=== PATIENT | male | born 1950 | race Caucasian/White ===

== ENCOUNTER 2021-06-25 21:04 | Emergency (ER) | payer MEDICARE, SELFPAY ==
[2021-06-25 21:03] VITALS: BP 123/77; PULSE 90; RESP 18; TEMP 36.8; O2SAT 97
--- NOTE | 2021-06-25 21:12 | NUR.NOTE ---
Difficult to discern information from patient. Refuses to change into gown. 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 Ambulates to restroom with slow but steady gait; offers to provide urine specimen.Nursing Note:
--- NOTE | 2021-06-25 21:12 | W.ED.GENAD ---
Discharge Plan Disposition Patient Disposition: HOME Condition: Stable Discharge Details Chief Complaint: Orthopedic Clinical Impression: Foot pain, bilateral Primary Care Provider: None,None ED Provider: Everardo Rebollar Home Meds and New Rx's Prescriptions: No Action No Known Home Meds RF: 0 Discharge Instructions Additional Instructions: Patient verbally discharged, no discharge packet given Discharge Data Discharge Date/Time-TO BE ENTERED AT DEPARTURE: 06/25/21 22:16 Medical Decision Making 71-year-old male, currently homeless, past medical history of diabetes, chronic pedal edema, who openly admits that he does not have a medical emergency this evening and simply wants to find a place where he can lay down and rest his feet. He was kicked out of the [facility] this evening because he states that the rules are too strict. He states that he could contact some friends from [employer] tomorrow but does not want to bother them tonight. He states that he has about $60 and if we give him an additional 25 he could likely take a cab to [place]. He wonders if any staff individually in the ER would provide him with this money or perhaps a hospital as a whole. He also would like us to contact the [facility] program. I explained to him that we could provide him with a phone and a warm exam room for an hour or so while he made arrangements but he could not stay here the night as we do not have the capacity. He does not want to use the phone himself, she would like us to make the phone calls and to make the arrangements for him. Nursing staff did in fact call the [employer] program and I had our community support specialist contact both local and state police to see if they would be able to provide him with a courtesy ride. Unfortunately the [employer] program did not call us back and lawn for [employer] was not able to provide a ride. We even contacted the [facility] to see if they would house him again this evening until he can make other arrangements tomorrow but they declined as they said his behavior was unsatisfactory and they would not take him back. We contacted local [employer] companies but they are not running this late at night. Unfortunately we did not have any case management to get involved as it was after hours. I contacted our nursing fitting room supervisor she discussed options and she personally spoke with the patient as well. At this point the patient became irate, yelling at staff, telling me that I have not been enough for him and that he hopes that I burn in hell. At this point patient was verbally discharged with his belongings. Patient was able to ambulate without any difficulty whatsoever. HPI General Mode of arrival: EMS. Date/Time Provider Initiated Documentation: 06/25/21 21:07. Limitations to Documentation: no limitations. Information obtained by: patient and EMS. HPI Narrative: This is a 71-year-old gentleman, past medical history of diabetes, bilateral lower leg edema chronic in nature, presenting to the ER today stating that he is simply traveling through the area, got kicked out of his housing today because he did not like the rules and he did not feel as though they treated him fairly, and is now homeless, because of this he has been walking all day and he feels as though his feet bilaterally are more swollen than baseline and causing him discomfort. Patient is specifically requesting that we find him somewhere to lie down so he can rest his feet. Patient denies recent illness, trauma, headache, fever, chest pain, shortness breath abdominal pain, nausea, vomiting, calf pain, numbness, tingling, weakness. Patient does smoke cigarettes, reports occasional alcohol use, denies drug use. Patient states that he does not want to call any friends that live with in an hour radius because he feels as though it is too late would not be fair to make them drive this far. Patient states that tomorrow morning he can likely contact someone from [employer] to make additional arrangements. He is otherwise feels like he cannot connect any other resources until Sunday and essentially has nowhere to stay tonight or tomorrow. Denies history of DVT or PE. Denies history of CHF. Related Data Home Medications Medication Instructions Recorded Confirmed Unknown [No Known Home Meds] 06/25/21 06/25/21 Allergies Allergy/AdvReac Type Severity Reaction Status Date / Time cephalexin [From Keflex] Allergy Nausea Unverified 06/25/21 21:06 General Stated Complaint: Orthopedic SAURAV: 3 Review of Systems Constitutional Constitutional: Denies fever(s) and Denies weakness Cardiovascular Cardiovascular: Denies chest pain and Denies dyspnea Respiratory Respiratory: Denies cough and Denies dyspnea Gastrointestinal Gastrointestinal: Denies abdominal pain, Denies nausea and Denies vomiting Musculoskeletal Musculoskeletal: Denies numbness and Denies tingling Integumentary/Breasts Skin/Breast: Denies erythema and Denies rash Neurologic Neurologic: Denies numbness, Denies tingling and Denies weakness [facility] Social History Smoking/Tobacco Use Status: Current every day Smoking risk assessment performed?: Yes Alcohol Intake: current Alcohol Intake frequency: a few times a week Substance use type: does not use Do you feel safe at home: Yes Do you feel safe in your relationship?: Yes Exam Const General: comfortable, no acute distress and other (Uncooperative, irritable, argumentative) Orientation: alert, awake and oriented x3 HENMT Head: normal to inspection, normocephalic and atraumatic Face and sinus: normal facial exam Mouth: moist mucous membranes Eyes General: appearance normal, both eyes and all related structures Conjunctivae: conjunctivae normal Neck Neck: normal visual inspection, full ROM, trachea midline and supple Resp Effort & Inspection: normal respiratory effort and able to speak in complete sentences Auscultation: clear to auscultation bilaterally Cardio Rate: regular rate Rhythm: regular rhythm GI Palpation: soft and nontender Skin General skin exam: no rashes or lesions noted Neuro General: patient alert, patient awake, patient oriented x3, moves all extremities and no focal motor deficits Cognition: normal cognition Speech: speech normal Gait: normal gait and other (Slow but steady gait) Sensory Exam: no sensory deficits noted Extrem General: full ROM, capillary refill normal, no calf tenderness and pedal edema bilaterally non-pitting and 2+ Right lower extremity: full ROM, normal capillary refill and knee Details: normal to inspection and normal ROM; no tenderness and no swelling Left lower extremity: full ROM, normal capillary refill and knee Details: normal to inspection and normal ROM; no tenderness and no swelling Other: Bilateral lower extremities with 2+ nonpitting edema without erythema, warmth, tenderness. Negative Homans' sign bilaterally. Normal capillary refill and pedal pulses bilaterally Psych Appearance: grossly normal Mental Status: mental status grossly normal Course Vital Signs Vital signs: Vital Signs Temperature 36.8 C 06/25/21 21:03 Pulse 90 06/25/21 21:03 Respiratory Rate 18 06/25/21 21:03 Blood Pressure 123/77 06/25/21 21:03 Pulse Oximetry 97 06/25/21 21:03 Temperature 36.8 C 06/25/21 21:03 Temperature Source Oral 06/25/21 21:03 Pulse 90 06/25/21 21:03 Respiratory Rate 18 06/25/21 21:03 Respiratory Effort Non-Labored 06/25/21 21:07 Blood Pressure 123/77 06/25/21 21:03 Blood Pressure Position Sitting 06/25/21 21:03 Pulse Oximetry 97 06/25/21 21:03 Oxygen Delivery Method Room Air 06/25/21 21:03 Oxygen Flow Rate 0 06/25/21 21:03 Pain Level 10 06/25/21 21:03
--- NOTE | 2021-06-25 21:38 | NUR.NOTE ---
Call to [employer] to attempt to find patient housingNursing Note:
--- NOTE | 2021-06-25 21:43 | NUR.NOTE ---
Three calls to [employer], no answer, message left.Nursing Note:
--- NOTE | 2021-06-25 21:49 | NUR.NOTE ---
Call to [facility], patient not allowed to stay there.Nursing Note:
--- NOTE | 2021-06-25 22:45 | NUR.NOTE ---
[address] returns call. They report the state [facility] is full and there is no housing available; especially in this county. Reports patient will be placed on probation/period of ineligibility until he contacts [employer] at , open M-F [phone]. Patient ambulated from hospital property with steady gait.Nursing Note:
== END 2021-06-25 22:16 | disposition home or self-care (01) ==
PROVIDERS: Emergency Provider Physician Assistant
DX: M79.672 Pain in left foot (principal); M79.671 Pain in right foot
CPT/HCPCS: 99283; 99281

== ENCOUNTER 2023-02-15 19:20 | Emergency (ER) | payer MEDICARE, OTHER, SELFPAY ==
--- NOTE | 2023-02-15 19:15 | RT.EKG_ITS ---
APPROVED REPORT Exam: Resting ECG Reason for Exam: dizzy Patient Location: E HR:76 bpm ECG Measurements Heart Rate 76 AXIS MT 191 P 41 QRSd 152 QRS 57 QT 375 T 37 QTc 422 Conclusion Sinus rhythm...normal P axis, V-rate 60- 99 Right bundle branch block...QRSd>120, terminal axis(90,270)
[2023-02-15 19:22] VITALS: BP 167/69; PULSE 72; RESP 17; TEMP 36.9; O2SAT 100
[2023-02-15 19:34] VITALS: RESP 18
--- NOTE | 2023-02-15 19:44 | NUR.NOTE ---
Nursing Note: Pt being very argumentative with staff. Pt refusing to undress to allow for evaluation. Pt refusing to answer any questions for nursing staff or provider. Pt refusing care and removing monitoring devices.
--- NOTE | 2023-02-15 19:47 | ED.GENADUL_ITS ---
Discharge Plan Disposition Patient Disposition: Eloped Discharge Details Clinical Impression: Peripheral edema Primary Care Provider: None,None ED Provider: Katina Potts Home Meds and New Rx's Prescriptions: No Action No Known Home Meds Medical Decision Making 73-year-old male who presents via EMS, challenging patient to assess as he is unwilling to speak with us unless he is seated in a chair rather than the bed, of note he is also refusing to place on a gown to be evaluated Patient made aware that we cannot fully assess him unless he is willing to disclose the reasons for which she has presented to this hospital and to have a full physical exam He was made aware that if he does not wish to be evaluated he may leave Patient became agitated and feels as though we are incompetent and is choosing to leave the emergency department prior to complete assessment, Attempt was made to call [facility] to transfer patient back to his residence for the evening, however unfortunately this is unavailable, he left the waiting room on his own accord and has eloped prior to complete exam and evaluation, competent to make this decision at time of my assessment HPI General Date/Time Provider Initiated Documentation: 02/15/23 19:22 . HPI Narrative: This 73-year-old male with reported past medical history of renal failure, diabetes, and peripheral edema presents via EMS for reports of lack of housing and increase in his peripheral edema. He presents from [facility] where a bystander called secondary to patient's leg swelling and reports of lightheadedness. On arrival, patient is complaining of abdominal discomfort and leg swelling. He denies chest pain, shortness of breath, dizziness, headache, falls, injuries, illicit drug use. He states that he does not take any medications and does not have a doctor. Related Data Home Medications Medication Instructions Recorded Confirmed Unknown [No Known Home Meds] 06/25/21 06/25/21 Allergies Allergy/AdvReac Type Severity Reaction Status Date / Time cephalexin [From Keflex] Allergy Nausea Unverified 06/25/21 21:06 General Stated Complaint: GenMedical SAURAV: 3 PFSH All Active Problems (Updated 02/15/23 @ 21:52 by SHANNON Hawkins) Foot pain, bilateral (Acute) Peripheral edema (Acute) Social History Smoking/Tobacco Use Status: Current every day Tobacco Type: cigarettes Smoking risk assessment performed?: Yes Alcohol Intake: former Substance use type: does not use Do you feel safe at home: Yes Do you feel safe in your relationship?: Yes Additional Social history: pt reports he is homeless Exam Narrative Exam Narrative: Full exam was attempted, however patient is refusing to take off his socks or lean forward on assessment, cardiac rate rhythm regular, pupils equal round reactive to light and accommodation, mild diffuse abdominal tenderness with distention, alert and oriented x4, significant edema, lymphedema to left lower extremity, 4+, 3+ edema to right lower extremity, distal pulses intact through socks Course Vital Signs Vital signs: Vital Signs Temperature 36.9 C 02/15/23 19:22 Pulse 72 02/15/23 19:22 Respiratory Rate 17 02/15/23 19:22 Blood Pressure 167/69 H 02/15/23 19:22 Pulse Oximetry 100 02/15/23 19:22 Temperature 36.9 C 02/15/23 19:22 Temperature Source Temporal Artery Scan 02/15/23 19:22 Pulse 72 02/15/23 19:22 Respiratory Rate 18 02/15/23 19:34 Respiratory Effort Normal 02/15/23 19:34 Respiratory Depth Normal 02/15/23 19:34 Respiratory Pattern Normal 02/15/23 19:34 Blood Pressure 167/69 H 02/15/23 19:22 Blood Pressure Position Sitting 02/15/23 19:22 Pulse Oximetry 100 02/15/23 19:22 Oxygen Delivery Method Room Air 02/15/23 19:22 Oxygen Flow Rate 0 02/15/23 19:22
--- NOTE | 2023-02-15 19:56 | NUR.NOTE ---
Nursing Note: Patient being argumentative with staff. Patient verbally degrading to nursing staff. Patient removed all monitoring and left ER ambulatory.
--- OUTSIDE RECORDS SUMMARY | 2023-02-15 21:22 | XMS_ITS | Continuity of Care Document ---
Author Name [facility] Address [address] [place] [address] Organization [facility] Address [address] [place] [address] Support Name Relationship Address Phone No Primary Care, Physician Primary Care Provider Unknown Unavailable Sylwia Wisdom Emergency Provider [facility] Department [address], Dimitri Amezcua [place], [place] [id number] Allergies, Adverse Reactions, Alerts No known allergies. Medications No medication information available. Problem List Active Problems Medical Problem Onset Date Status Acute UTI Active Chronic foot pain Active Procedures Procedure Date Status Urine Culture February 15, 2021 active Relevant Diagnostic Tests and/or Laboratory Data Laboratory Results Test Date/Time Result Interp. Ref. Range Result Co mment Urine Color February 15, 2021 11:08am Pale yellow Urine Clarity February 15, 2021 11:08am Turbid High Urine Specific [place] February 15, 2021 11:08am 1.029 1.005-1.035 Urine Glucose (UA) February 15, 2021 11:08am 250 mg/dL High Urine Bilirubin February 15, 2021 11:08am Negative mg/dL Urine Ketones February 15, 2021 11:08am Negative mg/dL Urine Occult Blood February 15, 2021 11:08am 150 /uL High Urine pH February 15, 2021 11:08am 6.0 4.8-7.4 Urine Protein February 15, 2021 11:08am 30 mg/dL High Urine Urobilinogen February 15, 2021 11:08am Normal mg/dL Urine Nitrite February 15, 2021 11:08am Negative Urine Leukocyte Esterase February 15, 2021 11:08am 500 /uL High Urine WBC February 15, 2021 11:08am Loaded /hpf High Urine RBC February 15, 2021 11:08am 11-20 /hpf High Urine Squamous Epithelial Cells February 15, 2021 11:08am 0-2 /hpf Urine Bacteria February 15, 2021 11:08am 2+ /hpf High Advance Directives Advance Directive Response Recorded Date/ Time Date Patient Queried 02/15/21 February 15 11:07am Does the patient have a Healthcare Proxy? No February 15, 2021 11:07am Healthcare Proxy Status Informed Patient February 15, 2021 11:07am Chief Complaint and Reason for Visit Encounter Admit Date Chief Complaint Reason for V isit Departed Emergency February 15, 2021 10:12am Lt leg pain Hospital Discharge Instructions Additional Discharge Instructions You we re evaluated in the emergency room for left foot pain. Your foot does not appear to be infected however you do have a urinary tract infection. Please take the antibiotics that were prescribed at the other hospital. Please follow-up with your regular doctor. Return for any significant worsening for pain or other concerns. No Instructions/Education Pr ovided Encounters Encounter Facility Location Admit/Visit Date Discharge/Departure Date Attending Provider Departed Emergency [facility] [place] [facility] February 15, 2021 10:12am February 15, 2021 12:55pm Functional Status Query Response Date Recorded Comment Patient Orientation Oriented x3 February 15, 2021 10:45am Immunizations No known immunizations. Plan of Care No Known Plan of Care Information Social History Query Response Date Recorded Comment Does the patient use drugs? No February 15, 2021 10:45am Is pt a current\former smoke r or user of tobacco products? Yes, current February 15, 2021 10:45am Query Response Start Date Stop Date Is pt a current\former smoke r or user of tobacco products? Yes, current Vital Signs Vital Reading Result Reference Range Collection Date/Time Height 5 ft 7 in February 15, 2021 10 :45am Weight 86.2 kg February 15, 2021 10 :45am Temperature 98.3 F 97.5 F-99.3 F February 15, 2021 1 0:45am Pulse 80 BPM 60-90 February 15, 2021 10 :45am Respiration 18 RPM 12-20 February 15, 2021 10 :45am Pulse Oximetry 99 % 95-100 February 15, 2021 10:45am Blood Pressure Systolic 154 100-160 February 15, 2021 10:45am Blood Pressure Diastolic 80 60-90 February 15, 2021 10:45am
--- OUTSIDE RECORDS SUMMARY | 2023-02-15 21:22 | XMS_ITS | CCD ---
Author Name Unknown Address [address] [place] [id number] Organization Unknown Address [address] [place] [id number] Care Team Providers Care Golf Coach Name Role Phone FELICIA SPARKS Attending Physician [id number] [phone] ALEC HARMON Er Physician 6 [phone] ERNESTO Mena Registered Nurse [phone] CARY Mena Registered Nurse [phone] Vital Signs Vital Sign Value Unit Date/Time Recent/Initial ? BMI (Body Mass Index) 28.19 kg/m^2 02/12/2023 18: 24 Initial VS Weight Measured 180 lbs 02/12/2023 18:24 Ini tial VS Height 67 in 02/12/2023 18:24 Initial VS BSA (Body Surface Area) 1.96 m^2 02/12/2023 1 8:24 Initial VS BP Systolic 155 mmHg 02/12/2023 18:24 Initial VS BP Diastolic 75 mmHg 02/12/2023 18:24 Initia l VS Respiratory Rate 20 bpm 02/12/2023 18:24 In itial VS Heart Rate 92 bpm 02/12/2023 18:24 Initial VS O2 % BldC Oximetry 100 % 02/12/2023 18:24 Initial VS Body Temperature 35.4 degrees 02/12/2023 18:24 In itial VS Allergies Allergy Code Allergy Type Reaction Status KEFLEX [id number] Drug allergy Active Procedures Unknown or Not Available. History of Immunizations Unknown or Not Available. Problems Problem Code Start Date Resolved Date Status NIDDM 58674117 Active Chronic kidney disease [id number] Ac tive Homeless [id number] 02/12/2023 Active Results Unknown or Not Available. Active Medications Unknown or Not Available. Medications Administered During Visit Unknown or Not Available. Encounters Encounter Diagnosis Diagnosis Code Start Date Localized edema [id number] 02/12/2023 Social History Smoking Status Code Start Date End Date Current every day smoker [id number] Patient Decision Aids Unknown or Not Available. Discharge Instructions You were admitted to [facility] on 02/12/2023 18:01 with a principal diagnosis of Localized edema You were discharged from [facility] on 02/12/2023 22:18 Should you have any questions prior to discharge, please contact a member of your healthcare team. If you have left the hospital and have any questions, please contact your primary care physician. Chief Complaint and Reason For Visit Chief Complaint Date of Onset BOTH FEET IN PAIN SWOLLEN Function Status Unknown or Not Available. Plan of Care Unknown or Not Available. Referral/Transition of Care Unknown or Not Available.
--- OUTSIDE RECORDS SUMMARY | 2023-02-15 21:22 | XMS_ITS | Continuity of Care Document ---
Author Name Unknown Organization [facility] Address [address] [place] [id number] Encounter CCA Date(s): 11/14/19 - 11/14/[address] [address]- Encounter Diagnosis Leg swelling(Discharge Diagnosis) - 11/14/19 Urinary tract infection(Discharge Diagnosis) - 11/14/19 Discharge Disposition: Discharged to Home Attending Physician: MD Godinez Jeja Admitting Physician: MD Godinez Jeja Allergies, Adverse Reactions, Alerts Substance Reaction Severity Status cephalexin 1 Unknown Active 1 Legacy System: CCA Onset Date: <blank> Substance Legacy/Cerner: cephalexin / cephalexin (Legacy value) Category: Drug Severity Legacy/Cerner: <blank> / Unknown Reaction(s): <blank> Comments: <blank> Assessment and Plan Diagnostic Tests Pending * Blood Culture 11/14/19 * Blood Culture 11/14/19 * Urine Culture 11/14/19 Medications levoFLOXacin 750 mg oral tablet 750 mg = 1 tab, Oral, every 24 hr, X 5 days, # 5 tab, 0 Refill(s), 11/19/19 22:07:00 EST, UTI, uncomplicated Start Date: 11/14/19 Stop Date: 11/19/19 Status: Ordered Problem List Condition Effective Dates Status Health Status Inform ant CHF - Congestive heart failure(Confirmed) 1 Active 1Conversion Values Problem:CHF - Congestive heart failure Code :555336882 Confirmation :Confirmed Status :Active Onset: No Value Matched on:[employer] Results Laboratory List Name Date CBC with Automated Differential (CBC w/ Auto Diff) 11/14/19 Comprehensive Metabolic Panel (CMP) 11/14 D-Dimer 11/14/19 Lactic Acid (Venous) 11/14/19 PT (PT (with INR)) 11/14/19 PTT 11/14/19 Urinalysis Microscopic 11/14/19 Urinalysis with Microscopic (UA with Milo roscopic) 11/14/19 Most recent to oldest [Reference Range]: 1 2 3 WBC [4.50-13.00 x10^3/mcL] 4.18 x10^3/mc L *LOW* (11/14/19 6:21 PM) RBC [4.50-5.90 x10^6/mcL] 4.00 x10^6/mcL *LOW* (11/14/19 6:21 PM) Neutro Auto [36.0-66.0 %] 61.3 % (11/14/19 6:21 PM) Lymph Auto [20.0-55.0 %] 22.7 % (11/14/19 6: PM) Piatt Auto [0.0-10.0 %] 9.8 % (11/14/19 6:21 PM) Basophil Auto [0.0-2.0 %] 1.2 % (11/14/19 6:21 PM) Prothrombin Time [12.0-14.2 seconds] 12.7 seconds (11/14/19 6:21 PM) INR [0.0-1.5] 0.9 (11/14/19 6:21 PM) BUN [6.0-20.0 mg/dL] 26.0 mg/dL *HI* (11/14/19 6:21 PM) UA Color Yellow (11/14/19 6:21 PM) UA WBC >100 *ABN* (11/14/19 6:21 PM) Glucose Level [70-95] 189 *HI* (11/14/19 6:21 PM) Potassium Level [3.5-5.1 mmol/L] 4.2 mmol/L (11/14/19 6:21 PM) Baso Absolute [0.0-0.1 x10^3/mcL] 0.0 x10^3/mcL (11/14/19 6:21 PM) MCV [80.0-100.0 fL] 92.5 fL (11/14/19 6:21 PM) UA Urobilinogen [Normal] Normal (11/14/19 6:21 PM) UA Bili [Negative] Negative (11/14/19 6: PM) UA Ketones [Negative] Negative (11/14/19 6: PM) AST [10-50 IntlUnit/L] 16 IntlUnit/L (11/14/19 6: PM) ALT [10-44 IntlUnit/L] 18 IntlUnit/L (11/14/19 6: PM) MCHC [31.0-37.0 g/dL] 32.4 g/dL (11/14/19: PM) Sodium Level [136-145 mmol/L] 137 mmol/L (11/14/19: PM) UA RBC 5-9 *NA* (11/14/19: PM) UA Leuk Est [Negative] 3+ *ABN* (11/14/19 PM) Lymph Absolute [0.8-5.8 x10^3/mcL] 1.0 x10^3/mcL (11/14/19: PM) UA Nitrite [Negative] Negative (11/14/19 PM) UA Glucose [Normal] Normal (11/14/19 PM) Hct [41.0-53.0 %] 37.0 % *LOW* (11/14/19: PM) UA Bacteria Large *ABN* (11/14/19 PM) Partial Thromboplastin Time [24.2-35.5 seconds] 29.7 seconds (11/14/19: PM) Calcium Level [8.8-10.2 mg/dL] 8.8 mg/dL (11/14/19: PM) Piatt Absolute [0.0-1.1 x10^3/mcL] 0.4 x10^3/mcL (11/14/19: PM) Albumin Level [3.5-5.0 g/dL] 3.8 g/dL (11/14/19: PM) Protein Total [6.4-8.3 g/dL] 7.5 g/dL (11/14/19: PM) UA Protein [Negative] Trace *ABN* (11/14/19 PM) MCH [26.0-34.0 pg] 30.0 pg (11/14/19: PM) Neutro Absolute [1.6-8.5 x10^3/mcL] 2.6 x10^3/mcL (11/14/19 6:21 PM) Bilirubin Total [0.00-1.00 mg/dL] 0.50 mg/dL (11/14/19: PM) Hgb [13.5-17.0 g/dL] 12.0 g/dL *LOW* (11/14/19: PM) Alk Phos [40-129 IntlUnit/L] 75 IntlUnit /L (11/14/19 6:21 PM) UA Blood [Negative] 1+ *ABN* (11/14/19: PM) MPV [7.4-10.4 fL] 10.2 fL (11/14/19: PM) UA Mucous Trace *NA* (11/14/19 PM) UA Spec Grav [1.005] 1.012 (11/14/19: PM) Platelets [150-450 x10^3/mcL] 167 x10^3/mcL (11/14/19: PM) CO2 [23-29 mmol/L] 25 mmol/L (11/14/19 6:21 PM) Eos Absolute [0.0-1.0 x10^3/mcL] 0.2 x10^3/mcL (11/14/19: PM) Lactic Acid, Plasma (Venous) [0.5-1.9 mmol/L] 1.1 mmol/L (11/14/19: PM) UA Squam Epithelial 0-4 (11/14/19: PM) RDW [11.5-14.0 %] 13.4 % (11/14/19: PM) UA pH 5.0 (11/14/19 6:21 PM) eGFR Non-AA 41 *NA* (11/14/19: PM) eGFR AA 49 *NA* (11/14/19: PM) UA Appear [Clear] Turbid *ABN* (11/14/19: PM) Chloride Level [98-107 mmol/L] 105 mmol/L (11/14/19 6:21 PM) A/G Ratio [1-2] 1 (11/14/19 6:21 PM) BUN/Creat Ratio 15 *NA* (11/14/19 6:21 PM) Globulin [2.4-3.5 g/dL] 3.7 g/dL *HI* (11/14/19 6:21 PM) Osmolality Calc [261-280 mOsm/kg] 292 mOsm/kg *HI* (11/14/19 6:21 PM) Creatinine Level [0.9-1.2 mg/dL] 1.7 mg/dL *HI* (11/14/19 6:21 PM) Anion Gap [7-16 mmol/L] 11 mmol/L (11/14/19 6:21 PM) D Dimer, (Quant.) [0.00-0.50 mcg/mL] 0.52 mcg/mL *HI* (11/14/19 6:21 PM) Eos, Auto [0.0-6.0 %] 4.8 % (11/14/19 6:21 PM) Systolic Blood Pressure [90-140 mmHg] 148 mmHg *HI* (11/14/19:20 PM) 162 mmHg *HI* (11/14/19 7:15 PM) 159 mmHg *HI* (11/14/19 5:00 PM) Diastolic Blood Pressure [60-90 mmHg] 72 mmHg (11/14/19 10:20 PM) 80 mmHg (11/14/19 7:15 PM) 74 mmHg (11/14/19 5:00 PM) Respiratory Rate [14-20 br/min] 20 br/min (11/14/19 10:20 PM) 18 br/min (11/14/19 7:15 PM) 21 br/min *HI* (11/14/19 5:00 PM) Vital Signs Most recent to oldest [Reference Range]: 1 2 3 Temperature Temporal Artery [36-38 Deg C] 37.0 Deg C (11/14/19 5:00 PM) Peripheral Pulse Rate [60-100] 82 (11/14/19 10:20 PM) 74 (11/14/19 7:15 PM) 85 (11/14/19 5:00 PM) Respiratory Rate [14-20 br/min] 20 br/min (11/14/19 10:20 PM) 18 br/min (2/14/20 7:15 PM) 21 br/min *HI* (11/14/19 5:00 PM) Blood Pressure [90-140/60-90 mmHg] 148/72mmHg *HI* (11/14/19 10:20 PM) 162/80mmHg *HI* (11/14/19 7:15 PM) 159/74mmHg *HI* (11/14/19 5:00 PM) Social History Social History Type Response Smoking Status 10 or more cigarette s (1/2 pack or more)/day in last 30 days; Type: Cigarettes entered on: 11/14/19 Sex Male Hospital Discharge Instructions Patient Education 11/14/2019 21:05:16 Urinary Tract Infection, Adult Urinary Tract Infection, Adult A urinary tract infection (UTI) is an infection of any part of the urinary tract, which includes the kidneys, ureters, bladder, and urethra. These organs make, store, and get rid of urine in the body. UTI can be a bladder infection (cystitis) or kidney infection (pyelonephritis). What are the causes? This infection may be caused by fungi, viruses, or bacteria. Bacteria are the most common cause of UTIs. This condition can also be caused by repeated incomplete emptying of the bladder during urination. What increases the risk? This condition is more likely to develop if: ??? You ignore your need to urinate or hold urine for long periods of time. ??? You do not empty your bladder completely during urination. ??? You wipe back to front after urinating or having a bowel movement, if you are female. ??? You are uncircumcised, if you are male. ??? You are constipated. ??? You have a urinary catheter that stays in place (indwelling). ??? You have a weak defense (immune) system. ??? You have a medical condition that affects your bowels, kidneys, or bladder. ??? You have diabetes. ??? You take antibiotic medicines frequently or for long periods of time, and the antibiotics no longer work well against certain types of infections (antibiotic resistance). ??? You take medicines that irritate your urinary tract. ??? You are exposed to chemicals that irritate your urinary tract. ??? You are female. What are the signs or symptoms? Symptoms of this condition include: ??? Fever. ??? Frequent urination or passing small amounts of urine frequently. ??? Needing to urinate urgently. ??? Pain or burning with urination. ??? Urine that smells bad or unusual. ??? Cloudy urine. ??? Pain in the lower abdomen or back. ??? Trouble urinating. ??? Blood in the urine. ??? Vomiting or being less hungry than normal. ??? Diarrhea or abdominal pain. ??? Vaginal discharge, if you are female. How is this diagnosed? This condition is diagnosed with a medical history and physical exam. You will also need to providea urine sample to test your urine. Other tests may be done, including: ??? Blood tests. ??? Sexually transmitted disease (STD) testing. If you have had more than one UTI, a cystoscopy or imaging studies may be done to determine the cause of the infections. How is this treated? Treatment for this condition often includes a combination of two or more of the following: ??? Antibiotic medicine. ??? Other medicines to treat less common causes of UTI. ??? Waxi-yea-tdzbgol medicines to treat pain. ??? Drinking enough water to stay hydrated. Follow these instructions at home: ??? Take utru-yxx-srofidv and prescription medicines only as told by your health care provider. ??? If you were prescribed an antibiotic, take it as told by your health care provider. Do not stoptaking the antibiotic even if you start to feel better. ??? Avoid alcohol, caffeine, tea, and carbonated beverages. They can irritate your bladder. ??? Drink enough fluid to keep your urine clear or pale yellow. ??? Keep all follow-up visits as told by your health care provider. This is important. ??? Make sure to: ??? Empty your bladder often and completely. Do not hold urine for long periods of time. ??? Empty your bladder before and after sex. ??? Wipe from front to back after a bowel movement if you are female. Use each tissue one time whenyou wipe. Contact a health care provider if: ??? You have back pain. ??? You have a fever. ??? You feel nauseous or vomit. ??? Your symptoms do not get better after 3 days. ??? Your symptoms go away and then return. Get help right away if: ??? You have severe back pain or lower abdominal pain. ??? You are vomiting and cannot keep down any medicines or water. This information is not intended to replace advice given to you by your health care provider. Make sure you discuss any questions you have with your health care provider. Document Released: 06/27/2006 Document Revised: 02/28/2017 Document Reviewed: 08/07/2016 [employer] Interactive Patient Education ?? 2017 [employer] Follow Up Care 11/14/2019 16:53:48 With:Return to Emergency Department Address: When:12 Hours Comments:Please return??tomorrow??to ER at 7:00 a.m. for an??ultrasound of your leg. With:Follow up with primary care provider Address:Unknown When:2 to 4 days
--- OUTSIDE RECORDS SUMMARY | 2023-02-15 21:22 | XMS_ITS | Continuity of Care Document ---
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 Name Role Phone UNKNOWN, DOCTOR Primary Care Physician Unavailab le Encounter [facility] [id number] Date(s): 08/09/21 - 08/10/21 [facility] [address] [place] [address]- [facility] Encounter Diagnosis Acute UTI(Discharge Diagnosis) - 08/10/21 Discharge Disposition: Home/Routine Attending Physician: ARMINDA PRETTY MD Referring Physician: VIJAY RUDOLPH MD Reason for Visit AMB LEG PAIN Allergies, Adverse Reactions, Alerts Substance Reaction Severity Status Keflex Active Toradol Nausea Active Medications levoFLOXacin (Levaquin 500 m g oral tablet) Status: Ordered Start Date: 08/10/21 Stop Date: 08/15/21 1 tab(s) By Mouth every 24 hours for 5 Days. Refills: 0. Ordering provider: NISHA BEAVER metFORMIN (Glucophage 500 mg oral tablet) Status: Ordered Start Date: 04/13/15 1 tab(s) By Mouth 2 TIMES A DAY. Refills: 0. Ordering provider: ROBERT BENAVIDES metFORMIN (metformin) Status: Ordered Start Date: 04/13/15 By Mouth. Problem List Condition Effective Dates Status Health Status Inform ant Alcohol abuse(Confirmed) Active Asthma(Confirmed) Active Congestive heart failure(Confirmed) Active Diabetes mellitus, type II(Confirmed) Active Results Orders for Microbiology Reports Name Date Urine Culture (C&S) (Urine Culture) 08/09 Microbiology Reports TEST:Urine Culture COLLECTED DATE/TIME:08/09/21 9:13 PM Urine CultureSpecimen Description: Urine Special Requests: None Reflexed from [id number] Culture: Greater than 100,000 cfu/ml Acinetobacter radioresistens Culture: Greater than 100,000 cfu/ml Enterococcus faecalis Culture: 50,000-100,000 cfu/mL Normal Josee Vital Signs 08/09/21 Blood Pressure 165/107mmHg Dosing Weight (kg) 80.75 kg 1 Pulse 81 BPM Temperature Metric 36.8 DegC Respiratory Rate 16 br/min 1Result Comment: Dosing weight (kg) was created by [employer] Expert using the Admission weight (kg). Social History Social History Type Response Smoking Status Yes, smoke everyday Sex Male Hospital Discharge Instructions Patient Education 08/10/2021 00:07:09 UTI (Urinary Tract Infection): Male Urinary Tract Infections (UTI) in Men: Care Instructions Overview A urinary tract infection, or UTI, is a term for an infection anywhere between the kidneys and the urethra. (The urethra is the tube that carries urine from the bladder to outside the body.) Most UTIs are bladder infections. They often cause pain or burning when you urinate. UTIs are caused by bacteria. This means they can be cured with antibiotics. Be sure to complete your treatment so that the infection does not get worse. Follow-up care is a ramírez part of your treatment and safety. Be sure to make and go to all appointments, and call your doctor if you are having problems. It's also a good idea to know your test resultsand keep a list of the medicines you take. How can you care for yourself at home? Take your antibiotics as prescribed. Do not stop taking them just because you feel better. You need to take the full course of antibiotics. ??? Take your medicines exactly as prescribed. Your doctor may have prescribed a medicine, such as phenazopyridine (Pyridium), to help relieve pain when you urinate. This turns your urine orange. Youmay stop taking it when your symptoms get better. But be sure to take all of your antibiotics, which treat the infection. ??? Drink extra water for the next day or two. This will help make the urine less concentrated and help wash out the bacteria causing the infection. (If you have kidney, heart, or liver disease and have to limit your fluids, talk with your doctor before you increase your fluid intake.) ??? Avoid drinks that are carbonated or have caffeine. They can irritate the bladder. ??? Urinate often. Try to empty your bladder each time. ??? To relieve pain, take a hot bath or lay a heating pad (set on low) over your lower belly or genital area. Never go to sleep with a heating pad in place. To help prevent UTIs ??? Drink plenty of fluids. If you have kidney, heart, or liver disease and have to limit fluids, talk with your doctor before you increase the amount of fluids you drink. ??? Urinate when you have the urge. Do not hold your urine for a long time. Urinate before you go to sleep. ??? Keep your penis clean. Catheter care If you have a drainage tube (catheter) in place, the following steps will help you care for it. ??? Always wash your hands before and after touching your catheter. ??? Check the area around the urethra for inflammation or signs of infection. Signs of infection include irritated, swollen, red, or tender skin, or pus around the catheter. ??? Clean the area around the catheter with soap and water two times a day. Dry with a clean towel afterward. ??? Do not apply powder or lotion to the skin around the catheter. To empty the urine collection bag ??? Wash your hands with soap and water. ??? Without touching the drain spout, remove the spout from its sleeve at the bottom of the collection bag. Open the valve on the spout. ??? Let the urine flow out of the bag and into the toilet or a container. Do not let the tubing or drain spout touch anything. ??? After you empty the bag, clean the end of the drain spout with tissue and water. Close the valve and put the drain spout back into its sleeve at the bottom of the collection bag. ??? Wash your hands with soap and water. When should you call for help? Call your doctor now or seek immediate medical care if: ??? Symptoms such as a fever, chills, nausea, or vomiting get worse or happen for the first time. ??? You have new pain in your back just below your rib cage. This is called flank pain. ??? There is new blood or pus in your urine. ??? You are not able to take or keep down your antibiotics. Watch closely for changes in your health, and be sure to contact your doctor if: ??? You are not getting better after taking an antibiotic for 2 days. ??? Your symptoms go away but then come back. Where can you learn more? Go to https://www.[employer].net/patientEd Enter S351 in the search box to learn more about Urinary Tract Infections (UTI) in Men: Care Instructions. Current as of: November 10, 2020?Content Version: 12.9 ?? [employer], [employer]. Care instructions adapted under license by your healthcare professional. If you have questions about a medical condition or this instruction, always ask your healthcare professional. [employer] disclaims any warranty or liability for your use of this information. Functional Status 08/09/21 Tested for COVID-19 No Does patient have viral resp illness No Direct close contact with COVID-19 No Travel to [facility], [place] etc., No
--- OUTSIDE RECORDS SUMMARY | 2023-02-15 21:23 | XMS_ITS | Continuity of Care Document ---
Author Name Unknown Organization [facility] Address Unknown Care Team Providers Care Pegger Name Role Phone None, Given Primary Care Physician Unavailab le Encounter [facility] [phone] Date(s): 08/05/19 - 08/06/19 [facility] Discharge Disposition: Discharged to home Allergies, Adverse Reactions, Alerts Substance Reaction Severity Status Keflex Active Medications ciprofloxacin 250 mg oral tablet 500 MG = 2 TAB, PO, Q12H, # 28 TAB, 0 Refill(s) Start Date: 07/23/19 Stop Date: 07/30/19 Status: Ordered Lasix 20 mg oral tablet 20 MG = 1 TAB, PO, Daily, # 30 TAB, 0 Refill(s) Start Date: 08/06/19 Status: Ordered metFORMIN 500 mg oral tablet 500 MG = 1 TAB, PO, BID, # 30 TAB, 0 Refill(s) Start Date: 08/06/19 Status: Ordered Percocet 5/325 oral tablet 1-2 tabs, PO, Q6H, PRN Pain, # 6 TAB, 0 Refill(s) Start Date: 12/16/13 Stop Date: 12/19/13 Status: Ordered Zithromax Start Date: 10/20/16 Status: Ordered Problem List Condition Effective Dates Status Health Status Inform ant Asthma(Confirmed) Active Bronchiolitis, acute(Confirmed) Active CHF - Congestive heart failure(Confirmed) Active DM - Diabetes mellitus(Confirmed) Active Fluid overload(Confirmed) Active Hernia(Confirmed) Active Tobacco use(Confirmed) Active Procedures Procedure Date Related Diagnosis Body Site Status Hernia Completed Vital Signs Most recent to oldest [Reference Range]: 1 2 Temperature Oral [36.1-38 DegC] 36.6 Deg C (08/05/19 10:28 PM) Heart Rate [51-100 bpm] 80 bpm (08/06/19 1:13 AM) 96 bpm (08/05/19 10:28 PM) Respiratory Rate [13-20 br/min] 16 br/mi n (08/06/19 1:13 AM) 18 br/min (08/05/19 10:28 PM) Pulse Ox [89 %] 99 % (08/06/19 1:13 AM) 96 % (08/05/19 10:28 PM) Oxygen Source Room Air (08/06/19 1:13 AM) Room Air (08/05/19 10:28 PM) Blood Pressure [101-170/(ref erence range unavailable) mmHg] 144/73mmHg (08/06/19 1:13 AM) 136/65mmHg (08/05/19 10:28 PM) Blood Pressure Location Arm Left Upper (08/06/19 1:13 AM) Arm Left Upper (08/05/19 10:28 PM) Social History Social History Type Response Alcohol Alcohol Use: Current . Substance Abuse Use: Never. Tobacco Smoking tobacco use: 10 or more cigarettes (1/2 pack or more)/day in last 30 days. Tobacco Type: Cigarettes. Smoking Status Current Every Day [facility] Discharge Instructions Patient Education 08/06/2019 02:10:40 Diabetic Neuropathy Diabetic Neuropathy: Care Instructions Your Care Instructions When you have diabetes, your blood sugar level may get too high. Over time, high blood sugar levelscan damage nerves. This is called diabetic neuropathy. Nerve damage can cause pain, burning, tingling, and numbness and may leave you feeling weak. The feet are often affected. When you have nerve damage in your feet, you cannot feel your feet and toes as well as normal and may not notice cuts or sores. Even a small injury can lead to a serious infection. It is very important that you follow your doctor's advice on foot care. Sometimes diabetes damages nerves that help the body function. If this happens, your blood pressure, sweating, digestion, and urination might be affected. Your doctor may give you a target blood sugar level that is higher or lower than you are used to. Try to keep your blood sugar very close to this target level to prevent more damage. Follow-up care is a ramírez part of your treatment and safety. Be sure to make and go to all appointments, and call your doctor if you are having problems. It's also a good idea to know your test resultsand keep a list of the medicines you take. How can you care for yourself at home? Take your medicines exactly as prescribed. Call your doctor if you think you are having a problem with your medicine. It is very important that you take your insulin or diabetes pills as your doctor tells you. ??? Try to keep blood sugar at your target level. o Eat a variety of healthy foods, with carbohydrate spread out in your meals. A dietitian can help you plan meals. o Try to get at least 30 minutes of exercise on most days. o Check your blood sugar as many times each day as your doctor recommends. ??? Take and record your blood pressure at home if your doctor tells you to. Learn the importance of the two measures of blood pressure (such as 130 over 80, or 130/80). To take your blood pressure at home: o Ask your doctor to check your blood pressure monitor to be sure it is accurate and the cuff fits you. Also ask your doctor to watch you to make sure that you are using it right. o Do not use medicine known to raise blood pressure (such as some nasal decongestant sprays) beforetaking your blood pressure. o Avoid taking your blood pressure if you have just exercised or are nervous or upset. Rest at least 15 minutes before you take a reading. ??? Take pain medicines exactly as directed. o If the doctor gave you a prescription medicine for pain, take it as prescribed. o If you are not taking a prescription pain medicine, ask your doctor if you can take an mnec-nxa-phhqisb medicine. ??? Do not smoke. Smoking can increase your chance for a heart attack or stroke. If you need help quitting, talk to your doctor about stop-smoking programs and medicines. These can increase your chances of quitting for good. ??? Limit alcohol to 2 drinks a day for men and 1 drink a day for women. Too much alcohol can causehealth problems. ??? Eat small meals often, rather than 2 or 3 large meals a day. To care for your feet ??? Prevent injury by wearing shoes at all times, even when you are indoors. ??? Do foot care as part of your daily routine. Wash your feet and then rub lotion on your feet, but not between your toes. Use a handheld mirror or magnifying mirror to inspect your feet for blisters, cuts, cracks, or sores. ??? Have your toenails trimmed and filed straight across. ??? Wear shoes and socks that fit well. Soft shoes that have good support and that fit well (such as tennis shoes) are best for your feet. ??? Check your shoes for any loose objects or rough edges before you put them on. ??? Ask your doctor to check your feet during each visit. Your doctor may notice a foot problem youhave missed. ??? Get early treatment for any foot problem, even a minor one. When should you call for help? Call your doctor now or seek immediate medical care if: ??? You have symptoms of infection, such as: o Increased pain, swelling, warmth, or redness. o Red streaks leading from the area. o Pus draining from the area. o A fever. ??? You have new or worse numbness, pain, or tingling in any part of your body. Watch closely for changes in your health, and be sure to contact your doctor if: ??? You have a new problem with your feet, such as: o A new sore or ulcer. o A break in the skin that is not healing after several days. o Bleeding corns or calluses. o An ingrown toenail. ??? You do not get better as expected. Where can you learn more? Go to https://www.[employer].net/patientEd. Enter V828 in the search box to learn more about Diabetic Neuropathy: Care Instructions. ?? [id number] [employer]. Care instructions adapted under license by your healthcare professional. If you have questions about a medical condition or this instruction, always ask your healthcare professional. [employer] disclaims any warranty or liability for your use of this information. Content Version: 12.0; Current as of: April 24, 2018 08/06/2019 02:10:32 Edema: Leg and Ankle Leg and Ankle Edema: Care Instructions Your Care Instructions Swelling in the legs, ankles, and feet is called edema. It is common after you sit or stand for a while. Long plane flights or car rides often cause swelling in the legs and feet. You may also have swelling if you have to stand for long periods of time at your job. Problems with the veins in the legs (varicose veins) and changes in hormones can also cause swelling. Sometimes the swelling in the ankles and feet is caused by a more serious problem, such as heart failure, infection, blood clots, or liver or kidney disease. Follow-up care is a ramírez part of your treatment and safety. Be sure to make and go to all appointments, and call your doctor if you are having problems. It's also a good idea to know your test resultsand keep a list of the medicines you take. How can you care for yourself at home? If your doctor gave you medicine, take it as prescribed. Call your doctor if you think you are having a problem with your medicine. ??? Whenever you are resting, raise your legs up. Try to keep the swollen area higher than the level of your heart. ??? Take breaks from standing or sitting in one position. o Walk around to increase the blood flow in your lower legs. o Move your feet and ankles often while you stand, or tighten and relax your leg muscles. ??? Wear support stockings. Put them on in the morning, before swelling gets worse. ??? Eat a balanced diet. Lose weight if you need to. ??? Limit the amount of salt (sodium) in your diet. Salt holds fluid in the body and may increase swelling. When should you call for help? Call 911 anytime you think you may need emergency care. For example, call if: ??? You have symptoms of a blood clot in your lung (called a pulmonary embolism). These may include: o Sudden chest pain. o Trouble breathing. o Coughing up blood. Call your doctor now or seek immediate medical care if: ??? You have signs of a blood clot, such as: o Pain in your calf, back of the knee, thigh, or groin. o Redness and swelling in your leg or groin. ??? You have symptoms of infection, such as: o Increased pain, swelling, warmth, or redness. o Red streaks or pus. o A fever. Watch closely for changes in your health, and be sure to contact your doctor if: ??? Your swelling is getting worse. ??? You have new or worsening pain in your legs. ??? You do not get better as expected. Where can you learn more? Go to https://www.[facility].net/patientEd. Enter N696 in the search box to learn more about Leg and Ankle Edema: Care Instructions. ?? [id number] [employer]. Care instructions adapted under license by your healthcare professional. If you have questions about a medical condition or this instruction, always ask your healthcare professional. [employer] disclaims any warranty or liability for your use of this information. Content Version: 12.0; Current as of: June 23, 2018
--- OUTSIDE RECORDS SUMMARY | 2023-02-15 21:23 | XMS_ITS | Continuity of Care Document ---
Author Name Unknown Organization [facility] Address [address] [place] [address]- Care Team Providers Care Clay Hoister Name Role Phone Lawrence Yates Primary Care Physician U navailable Encounter BVT Date(s): 01/06/23 - 01/06/[address] [address]- [phone] Encounter Diagnosis Leg swelling(Discharge Diagnosis) - 01/06/23 Discharge Disposition: Home or Self Care Attending Physician: YEN JHA Admitting Physician: YEN JHA Allergies, Adverse Reactions, Alerts Substance Reaction Severity Status Keflex Moderate Active Assessment and Plan Extracted from: Title:General Medical Problem *ED Author:YEN PERRY Date:01/06/23 History of Present Illness 72-year-old male presents for evaluation of stress. He states that he has chronic leg swelling and kidney disease. He has been seen at several hospitals recently. He has been traveling. He is under significant stress. He states the stress causes him to smoke and smoking is bad for his kidneys. He denies any fevers or chills at this time. He states that his kidney function was checked recently and not bad . He states that he has had IV fluids in the past for dehydration. He also has diuretics but he has not been taking it. He states that his legs are slightly more swollen than usual today because he has been on them so much. He states he took a train from [place] to [place] today. He is looking for a homeless nursing home to stay in. He is also requesting Percocet or Valium to help him decrease his stress. He denies any difficulty urinating. No difficulty moving his bowels. Review of Systems Constitutional symptoms: Negative except as documented in HPI. Skin symptoms: Negative except as documented in HPI. Respiratory symptoms: Negative except as documented in HPI. Cardiovascular symptoms: Negative except as documented in HPI. Gastrointestinal symptoms: Negative except as documented in HPI. Genitourinary symptoms: Negative except as documented in HPI. Musculoskeletal symptoms: Bilateral leg swelling, Chronic back pain. Neurologic symptoms: Negative except as documented in HPI. Psychiatric symptoms: Stress. Health Status Allergies: Allergic Reactions (Selected) Moderate Keflex- No reactions were documented.. Past Medical/ Family/ Social History Medical history: No active or resolved past medical history items have been selected or recorded.. Surgical history: No active procedure history items have been selected or recorded.. Family history: No family history items have been selected or recorded.. Social history: Social & Psychosocial History Social History Alcohol Current, Wine, 1-2 times per month Substance Abuse Never Tobacco Current everyday tobacco user Tobacco Use:. 10 or more cigarettes (1/2 pack or more)/day in last 30 days Tobacco Use:. 1 ppd per day. Electronic Cigarette/Vaping Electronic Cigarette Use: Never. Electronic Cigarette Use: Never. Psychosocial History No active psychosocial history has been recorded . Problem list: Active Problems (2) Diabetes Kidney disease . Physical Examination Vital Signs Vital Signs 01/06/2023 17:46 EDT Temperature Temporal Artery 36.3 DegC Peripheral Pulse Rate 79 bpm Respiratory Rate 16 br/min Systolic Blood Pressure 164 mmHg HI Diastolic Blood Pressure 68 mmHg SpO2 98 % . Measurements 01/06/2023 17:55 EDT Height/Length Dosing 170.000 cm Weight Dosing 81.600 kg 01/06/2023 17:46 EDT Height/Length Estimated 170.000 cm Weight Estimated 81.600 kg . Basic Oxygen Information 01/06/2023 17:46 EDT Oxygen Therapy Room air . General: Nontoxic, no respiratory distress, comfortable HEENT: Normocephalic, atraumatic, lids and lashes normal, PERRL, EOMI, anicteric sclera, no conjunctival injection, moist oral mucosa Cards: Regular rate and rhythm, S1S2, no murmurs rubs or gallops Lungs: Good air entry, clear to auscultation bilaterally. No wheezes, rales, rhonchi or retractions Abdomen: Soft, nontender, nondistended, normal bowel sounds, no rebound or guarding, no peritoneal signs Musculoskeletal: Full range of motion of arms and legs, no tenderness to palpation. No clubbing or cyanosis, bilateral lower extremity edema without any significant erythema or warmth Neurological: Appropriate for age, strength normal Psych: Alert and oriented Skin: No petechiae, no lesions, warm and dry Medical Decision Making 72-year-old male presents for evaluation of increased stress and leg swelling. Patient states he does have a nicotine patch with him but did not put it on yet. He knows that he needs to quit smoking. He has been under increased stress. He is not suicidal. He is looking for homeless nursing home to stay in. He did request Percocet or Valium to help him with his stress so he does not smoke. I did explain that those medications are not appropriate to help not smoke. I have offered to do blood work or other medical evaluation. Patient has declined. Impression and Plan Diagnosis Leg swelling (OFC21-PR M79.89, Discharge, Medical) Plan Condition: Stable. Disposition: Medically cleared, Discharged: to home. Patient was given the following educational materials: Edema, [id number]. Follow up with: CareProvider NoPrimary Within 1 to 2 days; PCP Referral Within 1 to 2 days. Counseled: Patient. Functional Status 01/06/23 COVID-19 Screening None Medications No Known Medications Problem List Condition Confirmation Course Effective Dates Status Health St atus Informant Diabetes Confirmed Active Kidney disease Confirmed Active Vital Signs Most recent to oldest [Reference Range]: 1 Temperature Temporal Artery [36.3-37.8 D egC] 36.3 DegC (01/06/23 5:46 PM) Peripheral Pulse Rate [60-100 bpm] 79 bp m (01/06/23 5:46 PM) Respiratory Rate [14-20 br/min] 16 br/mi n (01/06/23 5:46 PM) Blood Pressure [90-140/60-90 mmHg] 164/6 8mmHg *HI* (01/06/23 5:46 PM) SpO2 [92-100 %] 98 % (01/06/23 5:46 PM) Height/Length Estimated 170.000 cm (01/06/23 5:46 PM) Height/Length Dosing 170.000 cm (01/06/23 5:55 PM) Weight Estimated 81.600 kg (01/06/23 5:46 PM) Weight Dosing 81.600 kg (01/06/23 5:55 PM) Social History Social History Type Response Tobacco Current everyday tob acco user Tobacco Use:. Sex Hospital Discharge Instructions Patient Education 01/06/2023 19:27:17 Edema, [id number] Edema Edema is when you have too much fluid in your body or under your skin. Edema may make your legs, feet, and ankles swell up. Swelling is also common in looser tissues, like around your eyes. This is acommon condition. It gets more common as you get older. There are many possible causes of edema. Eating too much salt (sodium) and being on your feet or sitting for a long time can cause edema in your legs, feet, and ankles. Hot weather may make edema worse. Edema is usually painless. Your skin may look swollen or shiny. Follow these instructions at home: ??? Keep the swollen body part raised (elevated) above the level of your heart when you are sittingor lying down. ??? Do not sit still or stand for a long time. ??? Do not wear tight clothes. Do not wear garters on your upper legs. ??? Exercise your legs. This can help the swelling go down. ??? Wear elastic bandages or support stockings as told by your doctor. ??? Eat a low-salt (low-sodium) diet to reduce fluid as told by your doctor. ??? Depending on the cause of your swelling, you may need to limit how much fluid you drink (fluid restriction). ??? Take smcc-svr-pefirki and prescription medicines only as told by your doctor. Contact a doctor if: ??? Treatment is not working. ??? You have heart, liver, or kidney disease and have symptoms of edema. ??? You have sudden and unexplained weight gain. Get help right away if: ??? You have shortness of breath or chest pain. ??? You cannot breathe when you lie down. ??? You have pain, redness, or warmth in the swollen areas. ??? You have heart, liver, or kidney disease and get edema all of a sudden. ??? You have a fever and your symptoms get worse all of a sudden. Summary ??? Edema is when you have too much fluid in your body or under your skin. ??? Edema may make your legs, feet, and ankles swell up. Swelling is also common in looser tissues,like around your eyes. ??? Raise (elevate) the swollen body part above the level of your heart when you are sitting or lying down. ??? Follow your doctor's instructions about diet and how much fluid you can drink (fluid restriction). This information is not intended to replace advice given to you by your health care provider. Make sure you discuss any questions you have with your health care provider. Document Revised: 07/13/2021 Document Reviewed: 07/13/2021 [employer] Patient Education ?? 2021 [employer]. Follow Up Care 01/06/2023 17:37:42 With:PCP Referral Address: N/A Business (1) When:1 to 2 days With:CareProvijared [facility] Address:Unknown When:1 to 2 days Physician Emergency department Note * YEN JHA: PERFORM, SIGN, VERIFY Event Display: ED Note - Physician Authored Date: Patient: VICK BURR Age: 72 years Sex: Male : 1950 Associated Diagnoses: Leg swelling Author: YEN JHA Basic Information Additional information: Chief Complaint from Nursing Triage Note : Chief Complaint 01/06/2023 17:46 EDT Chief Complaint left lower leg swelling. reports hx of kidney disease. . History of Present Illness 72-year-old male presents for evaluation of stress. He states that he has chronic leg swelling and kidney disease. He has been seen at several hospitals recently. He has been traveling. He is under significant stress. He states the stress causes him to smoke and smoking is bad for his kidneys. He denies any fevers or chills at this time. He states that his kidney function was checked recently and not bad . He states that he has had IV fluids in the past for dehydration. He also has diureticsbut he has not been taking it. He states that his legs are slightly more swollen than usual today because he has been on them so much. He states he took a train from [place] to [place] today. He is looking for a homeless nursing home to stay in. He is also requesting Percocet or Valium to help him decrease his stress. He denies any difficulty urinating. No difficulty moving his bowels. Review of Systems Constitutional symptoms: Negative except as documented in HPI. Skin symptoms: Negative except as documented in HPI. Respiratory symptoms: Negative except as documented in HPI. Cardiovascular symptoms: Negative except as documented in HPI. Gastrointestinal symptoms: Negative except as documented in HPI. Genitourinary symptoms: Negative except as documented in HPI. Musculoskeletal symptoms: Bilateral leg swelling, Chronic back pain. Neurologic symptoms: Negative except as documented in HPI. Psychiatric symptoms: Stress. Health Status Allergies: Allergic Reactions (Selected) Moderate Keflex- No reactions were documented.. Past Medical/ Family/ Social History Medical history: No active or resolved past medical history items have been selected or recorded.. Surgical history: No active procedure history items have been selected or recorded.. Family history: No family history items have been selected or recorded.. Social history: Social & Psychosocial History Social History Alcohol Current, Wine, 1-2 times per month Substance Abuse Never Tobacco Current everyday tobacco user Tobacco Use:. 10 or more cigarettes (1/2 pack or more)/day in last 30 days Tobacco Use:. 1 ppd per day. Electronic Cigarette/Vaping Electronic Cigarette Use: Never. Electronic Cigarette Use: Never. Psychosocial History No active psychosocial history has been recorded . Problem list: Active Problems (2) Diabetes Kidney disease . Physical Examination Vital Signs Vital Signs 01/06/2023 17:46 EDT Temperature Temporal Artery 36.3 DegC Peripheral Pulse Rate 79 bpm Respiratory Rate 16 br/min Systolic Blood Pressure 164 mmHg HI Diastolic Blood Pressure 68 mmHg SpO2 98 % . Measurements 01/06/2023 17:55 EDT Height/Length Dosing 170.000 cm Weight Dosing 81.600 kg 01/06/2023 17:46 EDT Height/Length Estimated 170.000 cm Weight Estimated 81.600 kg . Basic Oxygen Information 01/06/2023 17:46 EDT Oxygen Therapy Room air . General: Nontoxic, no respiratory distress, comfortable HEENT: Normocephalic, atraumatic, lids and lashes normal, PERRL, EOMI, anicteric sclera, no conjunctival injection, moist oral mucosa Cards: Regular rate and rhythm, S1S2, no murmurs rubs or gallops Lungs: Good air entry, clear to auscultation bilaterally. No wheezes, rales, rhonchi or retractions Abdomen: Soft, nontender, nondistended, normal bowel sounds, no rebound or guarding, no peritoneal signs Musculoskeletal: Full range of motion of arms and legs, no tenderness to palpation. No clubbing or cyanosis, bilateral lower extremity edema without any significant erythema or warmth Neurological: Appropriate for age, strength normal Psych: Alert and oriented Skin: No petechiae, no lesions, warm and dry Medical Decision Making 72-year-old male presents for evaluation of increased stress and leg swelling. Patient states he does have a nicotine patch with him but did not put it on yet. He knows that he needs to quit smoking.He has been under increased stress. He is not suicidal. He is looking for homeless nursing home to stay in. He did request Percocet or Valium to help him with his stress so he does not smoke. I did explain that those medications are not appropriate to help not smoke. I have offered to do blood work or other medical evaluation. Patient has declined. Impression and Plan Diagnosis Leg swelling ([id number]-FX M79.89, Discharge, Medical) Plan Condition: Stable. Disposition: Medically cleared, Discharged: to home. Patient was given the following educational materials: Edema, [id number]-aw-Wkzh. Follow up with: Lawrence Yates Within 1 to 2 days; PCP Referral Within 1 to 2 days. Counseled: Patient. [Electronically Signed on: 01/06/2023 19:47 EDT] YEN JHA MD [Verified on: 01/06/2023 19:47 EDT] YEN JHA MD Nurse Progress note * Uma Rapp RN: PERFORM Event Display: Progress Note-Nurse Authored Date: The pt came in tonight with a complaint of swollen legs. When The MD, Dr. Jha went in to see the pt he declined any medical exam. He stated that he had no place to stay. He called [facility], and the only nursing home bed is in [place], [place]. He also requested narcotic pain meds. He did not get any. [Electronically Signed on: 01/06/2023 19:42 EDT] Uma Rapp RN RN [Verified on: 01/06/2023 19:42 EDT] Uma Rapp RN RN Patient Care team information Care Team Personnel Name: Lawrence Yates Position: [facility] No Access Member Role: Primary Care Physician Name: Uma Rapp RN Position: [facility] RN [facility] Member Role: ED Nurse Name: YEN JHA Position: [facility] ED Physician LP Member Role: ED Physician Care Team Related Persons Name: HANY BURR Name: LAMBERTO SINGLETON
--- OUTSIDE RECORDS SUMMARY | 2023-02-15 21:23 | XMS_ITS | Continuity of Care Document ---
Author Name Unknown Organization [facility] Address [address] [place] [address] Encounter 09/11/21 - 09/11/21 [facility] [address] [place] [address] [place] Discharge Disposition: Left Against Medical Advice Attending Physician: MD Mcneil John Admitting Physician: MD Mcneil John Allergies, Adverse Reactions, Alerts Substance Reaction Severity Status Keflex Active Medications Flomax 0.4 mg oral capsule 0.4 mg = 1 cap, Oral, Qday, # 30 cap, 0 Refill(s) Start Date: 09/10/21 Status: Ordered Mental Status 09/11/21 Eye Opening Response Americo Spontaneous ly Best Verbal Response [facility] Oriented Best Motor Response Americo Obeys comman ds Americo Coma Score 15 Problem List Condition Effective Dates Status Health Status Inform ant Arthritis(Confirmed) Active BPH - benign prostatic hyperplasia(Confirmed) Active Chronic kidney disease(Confirmed) Active DM - Diabetes mellitus(Confirmed) Active Peripheral edema(Confirmed) Active Results Most recent to oldest [Reference Range]: 1 Pharmacy Estimated Creatinine Clearance 19.57 mL/min (09/11/21 3:15 AM) Vital Signs Most recent to oldest [Reference Range]: 1 Blood Pressure [91-140/90 mmHg] 155/60mm Hg *HI* (09/11/21 3:12 AM) Temperature Oral [36.1-37.8 Deg C] 36.4 Deg C (09/11/21 3:12 AM) Heart Rate Monitored [50-100 bpm] 78 bpm (09/11/21 3:12 AM) Respiratory Rate [12-20 br/min] 20 br/mi n (09/11/21 3:12 AM) Social History Social History Type Response Tobacco Smoking tobacco use: 10+ cigarettes(1/2 pack or more)/day in last 30 days. Sex
--- OUTSIDE RECORDS SUMMARY | 2023-02-15 21:23 | XMS_ITS | Continuity of Care Document ---
Author Name Unknown Organization [facility] Address Unknown Care Team Providers Care Conveyor Worker Name Role Phone None, Given Primary Care Physician Unavailab le Encounter [facility] [id number] Date(s): 08/19/19 - 08/20/19 [facility] Discharge Disposition: Discharged to home Attending Physician: Shahnaz Ibrahim MD Allergies, Adverse Reactions, Alerts Substance Reaction Severity [...] Range]: 1 2 Temperature Oral [36.1-38 DegC] 36.7 Deg C (08/19/19 11:33 PM) Heart Rate [51-100 bpm] 80 bpm (08/20/19 4:47 AM) 93 bpm (08/19/19 11:33 PM) Respiratory Rate [13-20 br/min] 16 br/mi n (08/20/19 4:47 AM) 18 br/min (08/19/19 11:33 PM) Pulse Ox [89 %] 97 % (08/20/19 4:47 AM) 97 % (08/19/19 11:33 PM) Oxygen Source ED Room Air (08/20/19 4:47 AM) Blood Pressure [101-170/(ref erence range unavailable) mmHg] 141/84mmHg (08/20/19 4:47 AM) 150/82mmHg (08/19/19 11:33 PM) Blood Pressure Location Arm Right Upper (08/20/19 4:47 AM) Social History Social History Type Response Alcohol Alcohol Use: Current . Substance Abuse Use: Never. Tobacco Smoking tobacco use: 10 or more cigarettes (1/2 pack or more)/day in last 30 days. Tobacco Type: Cigarettes. Smoking Status Current Every Day [facility] Sex Hospital Discharge Instructions Patient Education 08/20/2019 04:58:41 Edema: Leg and Ankle Leg and Ankle [...] Where can you learn more? Go to https://www.[employer].net/patientEd. Enter N696 in the search box to learn more about Leg and Ankle Edema: Care Instructions. ?? [phone] [employer]. Care instructions adapted under license by your healthcare professional. If you have questions about a medical condition or this instruction, always ask your healthcare professional. [employer] disclaims any warranty or liability for your use of this information. Content Version: 12.0; Current as of: June 23, 2018
--- OUTSIDE RECORDS SUMMARY | 2023-02-15 21:23 | XMS_ITS | Summary of Care ---
Author Name Unknown Organization [facility] Address [address] [place] [address] - Care Team Providers Care Chemical Processing Equipment Repairer Name Role Phone No Family , [id number] Primary Care Physician Unava ilable Encounter Date(s): 10/27/16 - 10/27/[address] - [facility] Discharge Diagnosis: Dependent edema Discharge Diagnosis: Diabetes mellitus Discharge Diagnosis: Encounter for medication refill Discharge Disposition: Home Attending Physician: DAWSON Nicholas Adam R Admitting Physician: DAWSON Nicholas Adam R Vital Signs Most recent to oldest [Reference Range]: 1 2 Height Dosing 67 INCHES (10/27/16 5:15 PM) 67 INCHES (10/27/16 4:31 PM) Weight Dosing 87.9 kg (10/27/16 5:15 PM) 87.9 kg (10/27/16 4:31 PM) BSA Dosing 2.04 m2 (10/27/16 5:15 PM) Body Mass Index Dosing 30.35 (10/27/16 5:15 PM) Temperature Temporal Artery 97.6 DegF (10/27/16 4:31 PM) Pulse Rate [60-100 bpm] 91 bpm (10/27/16 4:31 PM) Respiratory Rate [15-25 br/min] 16 br/mi n (10/27/16 4:31 PM) Blood Pressure [90-150/60-90 mmhg] 136/8 4mmhg (10/27/16 4:31 PM) Mean Arterial Pressure [70-150 mmHg] 101 mmHg (10/27/16 4:31 PM) Oxygen Saturation [94-100 %] 97 % (10/27/16 4:31 PM) Oxygen Delivery Room air (10/27/16 4:31 PM) Pain Symptoms No (1/27/17 4:31 PM) Problem List Condition Effective Dates Status Health Status Inform ant Asthma(Confirmed) Active Leg swelling(Confirmed) Active Allergies, Adverse Reactions, Alerts Substance Reaction Severity Status Keflex VOMITING Active Toradol VOMITTING Active Medications Lasix 20 mg oral tablet = 1 TAB, PO, Daily, # 30 TAB, 0 Refill(s) Start Date: 02/07/11 Status: Ordered metFORMIN 1000 mg oral tablet 1,000 mg = 1 TAB, PO, BID, # 60 TAB, 0 Refill(s) Start Date: 10/27/16 Status: Ordered metFORMIN 1000 mg oral tablet 1,000 mg = 1 TAB, PO, BID, # 180 TAB, 0 Refill(s) Start Date: 10/27/16 Status: Ordered Percocet 5/325 oral tablet 1 TAB, PO, BID, PRN for pain, TAB, 0 Refill(s) Start Date: 02/07/11 Status: Ordered Ultram 50 mg oral tablet 50 mg = 1 TAB, PO, Q6H, PRN as needed for pain, # 12 TAB, 0 Refill(s) Start Date: 10/27/16 Stop Date: 11/03/16 Status: Ordered Zithromax 250 mg oral tablet 250 mg = 1 TAB, PO, Daily, # 2 TAB, 0 Refill(s) Start Date: 10/27/16 Stop Date: 10/29/16 Status: Ordered Results Chemistry Most recent to oldest [Reference Range]: 1 Est. CrCl (Cockroft-Gault) 79.64 mL/min (10/27/16 4:37 PM) Immunizations No data available for this section Procedures Procedure Date Related Diagnosis Body Site Hernia repair Social History No data available for this section Functional Status No data available for this section Assessment and Plan No data available for this section Hospital Discharge Instructions No data available for this section
--- OUTSIDE RECORDS SUMMARY | 2023-02-15 21:23 | XMS_ITS | Continuity of Care Document ---
Author Name Unknown Organization [facility] Address Unknown Care Team Providers Care Director Of Physical Security Name Role Phone None, Given Primary Care Physician Unavailab le Encounter [facility] [id number] Date(s): 09/04/19 - 09/05/19 [facility] Discharge Disposition: Discharged to home Attending Physician: Teressa Barros MD Allergies, Adverse Reactions, Alerts Substance Reaction [...] Related Diagnosis Body Site Status Hernia Completed Results Radiology Reports * Exam Date Time Procedure Performing Provider Status 09/05/19 3:55 AM Chest PA and Lat Pamela Cedeño ; Auth (Verified) Notes: (Chest PA and Lat) Reason For Exam: Trauma Report PATIENT NAME: VICK BURR, , : 1950, [facility] HISTORY: Trauma TECHNIQUE: Chest X-ray Two views of the chest are evaluated. Study is compared with prior chest x-ray from 08/21/2014. FINDINGS: The heart is normal in size. The lung dasilva are clear. There is no pleural effusion. The mediastinum is unremarkable. IMPRESSION: No evidence of active disease Electronically Signed by: Gallito Nassar MD 09/05/19 11:17 Vital Signs Most recent to oldest [Reference Range]: 1 2 Temperature Oral [36.1-38 DegC] 36.4 Deg C (09/04/19 11:21 PM) Heart Rate [51-100 bpm] 82 bpm (09/05/19 3:44 AM) 89 bpm (09/04/19 11:21 PM) Respiratory Rate [13-20 br/min] 18 br/mi n (09/05/19 3:44 AM) 20 br/min (09/04/19 11:21 PM) Pulse Ox [89 %] 98 % (09/05/19 3:44 AM) 100 % (09/04/19 11:21 PM) Oxygen Source Room Air (09/05/19 3:44 AM) Room Air (09/04/19 11:21 PM) Blood Pressure [101-170/(ref erence range unavailable) mmHg] 147/76mmHg (09/05/19 3:44 AM) 139/78mmHg (09/04/19 11:21 PM) Blood Pressure Location Arm Right Upper (09/05/19 3:44 AM) Arm Right Upper (09/04/19 11:21 PM) Social History Social History Type Response Alcohol Alcohol Use: Current . Substance Abuse Use: Never. Tobacco Smoking tobacco use: 10 or more cigarettes (1/2 pack or more)/day in last 30 days. Tobacco Type: Cigarettes. Smoking Status Current Every Day oker Sex Hospital Discharge Instructions Patient Education 09/05/2019 04:03:37 Chest Pain: Musculoskeletal Musculoskeletal Chest Pain: Care Instructions Your Care Instructions Chest pain is not always a sign that something is wrong with your heart or that you have another serious problem. The doctor thinks your chest pain is caused by strained muscles or ligaments, inflamed chest cartilage, or another problem in your chest, rather than by your heart. You may need more tests to find the cause of your chest pain. Follow-up care is a ramírez part of your treatment and safety. Be sure to make and go to all appointments, and call your doctor if you are having problems. It's also a good idea to know your test resultsand keep a list of the medicines you take. How can you care for yourself at home? Take pain medicines exactly as directed. o If the doctor gave you a prescription medicine for pain, take it as prescribed. o If you are not taking a prescription pain medicine, ask your doctor if you can take an wlre-fnk-rwnydqg medicine. ??? Rest and protect the sore area. ??? Stop, change, or take a break from any activity that may be causing your pain or soreness. ??? Put ice or a cold pack on the sore area for 10 to 20 minutes at a time. Try to do this every 1 to 2 hours for the next 3 days (when you are awake) or until the swelling goes down. Put a thin cloth between the ice and your skin. ??? After 2 or 3 days, apply a heating pad set on low or a warm cloth to the area that hurts. Some doctors suggest that you go back and forth between hot and cold. ??? Do not wrap or tape your ribs for support. This may cause you to take smaller breaths, which could increase your risk of lung problems. ??? Mentholated creams such as Bengay or Icy Hot may soothe sore muscles. Follow the instructions on the package. ??? Follow your doctor's instructions for exercising. ??? Gentle stretching and massage may help you get better faster. Stretch slowly to the point just before pain begins, and hold the stretch for at least 15 to 30 seconds. Do this 3 or 4 times a day. Stretch just after you have applied heat. ??? As your pain gets better, slowly return to your normal activities. Any increased pain may be a sign that you need to rest a while longer. When should you call for help? Call 911 anytime you think you may need emergency care. For example, call if: ??? You have chest pain or pressure. This may occur with: o Sweating. o Shortness of breath. o Nausea or vomiting. o Pain that spreads from the chest to the neck, jaw, or one or both shoulders or arms. o Dizziness or lightheadedness. o A fast or uneven pulse. After calling 911, chew 1 adult-strength aspirin. Wait for an ambulance. Do not try to drive yourself. ??? You have sudden chest pain and shortness of breath, or you cough up blood. Call your doctor now or seek immediate medical care if: ??? You have any trouble breathing. ??? Your chest pain gets worse. ??? Your chest pain occurs consistently with exercise and is relieved by rest. Watch closely for changes in your health, and be sure to contact your doctor if: ??? Your chest pain does not get better after 1 week. Where can you learn more? Go to https://www.[employer].net/patientEd. Enter V293 in the search box to learn more about Musculoskeletal Chest Pain: Care Instructions. ?? [id number] [employer]. Care instructions adapted under license by your healthcare professional. If you have questions about a medical condition or this instruction, always ask your healthcare professional. [employer] disclaims any warranty or liability for your use of this information. Content Version: 12.0; Current as of: June 23, 2018
--- OUTSIDE RECORDS SUMMARY | 2023-02-15 21:23 | XMS_ITS | Continuity of Care Document ---
Author Name Unknown Organization [facility] Address Unknown Care Team Providers Care Packer Inspector Name Role Phone None, Given Primary Care Physician Unavailab le Encounter [facility] [id number] Date(s): 07/23/19 - 07/23/19 [facility] Discharge Disposition: Discharged to home Attending Physician: Cesar RING, Joana Olivera Allergies, Adverse Reactions, Alerts Substance Reaction Severity Status Keflex Active Assessment and Plan Diagnostic Tests Pending * Urine Culture 07/23/19 Medications ciprofloxacin 250 mg oral tablet 500 MG = 2 TAB, PO, Q12H, # 28 TAB, 0 Refill(s) Start Date: 07/23/19 Stop Date: 07/30/19 Status: Ordered Lasix 20 mg oral tablet 20 MG = 1 TAB, PO, Daily, # 30 TAB, 0 Refill(s) Start Date: 08/22/14 Status: Ordered Lasix 20 mg oral tablet 20 MG = 1 TAB, PO, Daily, # 5 TAB, 0 Refill(s) Start Date: 10/20/16 Status: Ordered metFORMIN. 0 Refill(s) Start Date: 10/20/16 Status: Ordered Percocet 5/325 oral tablet 1-2 tabs, PO, Q6H, PRN Pain, # 6 TAB, 0 Refill(s) Start Date: 12/16/13 Stop Date: 12/19/13 Status: Ordered Zithromax Start Date: 10/20/16 Status: Ordered Problem List Condition Effective Dates Status Health Status Inform ant Asthma(Confirmed) Active Bronchiolitis, acute(Confirmed) Active CHF - Congestive heart failure(Confirmed) Active Fluid overload(Confirmed) Active Hernia(Confirmed) Active Tobacco use(Confirmed) Active Procedures Procedure Date Related Diagnosis Body Site Status Hernia Completed Results Laboratory List Name Date UA with Reflex to Urine Cult ure (UA with Reflex to Urine Culture - ED Only) (Urinalysis Reflex to Culture) 07/23/19 Most recent to oldest [Reference Range]: 1 U APPEAR CLOUDY *ABN* (10/23/19 2:53 AM) U BACTERIA [Not Seen or Rare] MANY *ABN* (07/23/19 2:53 AM) U BILI [Negative] Negative (07/23/19 2:53 AM) U BLOOD [<10 /UL] 33 /UL *ABN* (07/23/19 2:53 AM) U COLOR Yellow (07/23/19 2:53 AM) U KETONES [Negative] Negative (07/23/19 2:53 AM) U LEUK [Negative] POSITIVE *ABN* (07/23/19 2:53 AM) U NITRITE [Negative] Negative (07/23/19 2:53 AM) U Protein Dipstick [<25 mg/dL] 50 mg/dL *ABN* (07/23/19 2:53 AM) U RBC [0-2] 3-5 *ABN* (07/23/19 2:53 AM) U SP GR [1.005-1.030] 1.012 (07/23/19 2:53 AM) U GLUCOSE [Negative mg/dL] 150 mg/dL *ABN* (07/23/19 2:53 AM) U PH [5.0-8.0 pH units] 5.5 pH units (07/23/19 2:53 AM) UA Status See Below (07/23/19 2:53 AM) U UROBILIN [Normal] Normal (07/23/19 2:53 AM) U WBC [0-2 /HPF] >100 /HPF *ABN* (07/23/19 2:53 AM) UA POS Reflex to Urine C&S POSITIVE 1 (07/23/19 4:37 AM) 1Result Comment: Urinalysis reflexed to urine culture. Vital Signs Most recent to oldest [Reference Range]: 1 2 3 Temperature Oral [36.1-38 DegC] 36.3 DegC (07/23/19 12:14 AM) Heart Rate [51-100 bpm] 80 bpm (07/23/19 4:41 AM) 83 bpm (07/23/19 1:28 AM) 88 bpm (07/23/19 12:14 AM) Respiratory Rate [13-20 br/min] 18 br/min (07/23/19 4:41 AM) 16 br/min (07/23/19 1:28 AM) 18 br/min (07/23/19 12:14 AM) Pulse Ox [89 %] 95 % (07/23/19 4:41 AM) 99 % (07/23/19 1:28 AM) 95 % (07/23/19 12:14 AM) Oxygen Source Room Air (07/23/19 4:41 AM) Room Air (07/23/19 1:28 AM) Room Air (07/23/19 12:14 AM) Blood Pressure [101-170/(reference range unavailable) mmHg] 120/67mmHg (07/23/19 4:41 AM) 126/78mmHg (07/23/19 1:28 AM) 133/74mmHg (07/23/19 12:14 AM) Blood Pressure Location Arm Right Upper (07/23/19 4:41 AM) Arm Right Upper (07/23/19 1:28 AM) Arm Right Upper (07/23/19 12:14 AM) Social History Social History Type Response Alcohol Alcohol Use: Current . Substance Abuse Use: Never. Smoking Status Smoker, Current Stat us Unknown entered on: 07/23/19 Sex Hospital Discharge Instructions Patient Education 07/23/2019 04:48:36 Urinary Tract Infection, Adult, Luoq-in-Ocyv Urinary Tract Infection, Adult A urinary tract infection (UTI) is an infection of any part of the urinary tract. The urinary tractincludes the: ??? Kidneys. ??? Ureters. ??? Bladder. ??? Urethra. These organs make, store, and get rid of pee (urine) in the body. Follow these instructions at home: ??? Take tjsu-xcw-lowlqbm and prescription medicines only as told by your doctor. ??? If you were prescribed an antibiotic medicine, take it as told by your doctor. Do not stop taking the antibiotic even if you start to feel better. ??? Avoid the following drinks: ??? Alcohol. ??? Caffeine. ??? Tea. ??? Carbonated drinks. ??? Drink enough fluid to keep your pee clear or pale yellow. ??? Keep all follow-up visits as told by your doctor. This is important. ??? Make sure to: ??? Empty your bladder often and completely. Do not to hold pee for long periods of time. ??? Empty your bladder before and after sex. ??? Wipe from front to back after a bowel movement if you are female. Use each tissue one time whenyou wipe. Contact a doctor if: ??? You have back pain. ??? You have a fever. ??? You feel sick to your stomach (nauseous). ??? You throw up (vomit). ??? Your symptoms do not get better after 3 days. ??? Your symptoms go away and then come back. Get help right away if: ??? You have very bad back pain. ??? You have very bad lower belly (abdominal) pain. ??? You are throwing up and cannot keep down any medicines or water. This information is not intended to replace advice given to you by your health care provider. Make sure you discuss any questions you have with your health care provider. Document Released: 03/05/2009 Document Revised: 03/12/2018 Document Reviewed: 08/07/2016 [employer] Interactive Patient Education ?? 2019 [employer]. 07/23/2019 04:48:31 Antibiotic Medicine, Adult Antibiotic Medicine, Adult Antibiotic medicines are used to treat infections caused by bacteria, such as strep throat and urinary tract infection (UTI). Antibiotic medicines will not work for viral illnesses, such as colds or the flu (influenza). They work by killing the bacteria that is making you sick. Antibiotics can alsohave serious side effects. It is important that you take antibiotic medicines safely and only when needed. When do I need to take antibiotics? Antibiotics are medicines that treat bacterial infections. You may need antibiotics for: ??? UTI. ??? Strep throat. ??? Meningitis. This infection affects the spinal cord and brain. ??? Bacterial sinusitis. ??? Serious lung infection. You may start antibiotics while your health care provider waits for test results to come back. Common tests may include throat, urine, blood, or mucus culture. Your health care provider may change orstop the antibiotic depending on your test results. When are antibiotics not needed? You do not need antibiotics for most common illnesses. These illnesses may be caused by a virus, not a bacteria. You do not need antibiotics for: ??? The common cold. ??? Influenza. ??? Sore throat. ??? Discolored mucus. ??? Bronchitis. Antibiotics are not always needed for all bacterial infections. Many of these infections clear up without antibiotic treatment. Do not ask for or take antibiotics when they are not necessary. How long should I take the antibiotic? You must take the entire prescription. Continue to take your antibiotic for as long as told by yourhealth care provider. Do not stop taking it even if you start to feel better. If you stop taking ittoo soon: ??? You may start to feel sick again. ??? Your infection may become harder to treat. ??? Complications may develop. Each course of antibiotics needs a different amount of time to work. Some antibiotic courses last only a few days. Some last about a week to 10 days. In some cases, you may need to take antibiotics for a few weeks to completely treat the infection. What if I miss a dose? Try not to miss any doses of medicine. If you miss a dose, call your health care provider or pharmacist for advice. Sometimes it is okay to take the missed dose as soon as possible. What are the risks of taking antibiotics? Most antibiotics can cause an infection called Clostridium difficile (C. difficile), which causes severe diarrhea. This infection happens when the antibiotics kill the healthy bacteria in your intestines. This allows C. difficile to grow. The infection needs to be treated right away. Let your health care provider know if: ??? You have diarrhea while taking an antibiotic. ??? You have diarrhea after you stop taking an antibiotic. C. difficile infection can start weeks after stopping the antibiotic. Taking an antibiotic also puts you at risk for getting a bacteria that does not respond to medicine(antibiotic-resistant infection) in the future. Antibiotics can cause bacteria to change so that ifthe antibiotic is taken again, the medicine is not able to kill the bacteria. These infections can be more serious and, in some cases, life-threatening. Do antibiotics affect control? control pills may not work while you are on antibiotics. If you are taking control pills, continue taking them as usual and use a second form of control, such as a condom, to avoid unwanted . Continue using the second form of control until your health care provider says you can stop. What else should I know about taking antibiotics? It is important for you to take antibiotics exactly as told. Make sure that you: ??? Take the entire course of antibiotic that was prescribed. Do not stop taking your antibiotics even if your symptoms improve. ??? Take the correct amount of medicine each day. ??? Ask your health care provider: ??? How long to wait in between doses. ??? If the antibiotic should be taken with food. ??? If there are any foods, drinks, or medicines that you should avoid while taking the antibiotics. ??? If there are any side effects you should be aware of. ??? Only use the antibiotics prescribed for you by your health care provider. Do not use antibiotics prescribed for someone else. ??? Drink a large glass of water along with the antibiotics. ??? Ask the pharmacist for a syringe, cup, or spoon that properly measures the antibiotics. ??? Throw away any leftover medicine. Contact a health care provider if: ??? Your symptoms get worse. ??? You have new joint pain or muscle aches that begin after starting the antibiotic. When should I seek immediate medical care? You have signs of a serious allergic reaction to antibiotics. If you have signs of a severe allergic reaction, stop taking the antibiotic right away. Signs may include: ??? Hives, which are raised, itchy, red bumps on the skin. ??? Skin rash. ??? Trouble breathing. ??? A wheezing sound when you breathe. ??? Swelling anywhere on your body. ??? Feeling dizzy. ??? Vomiting. ??? Your urine turns dark or becomes blood-colored. ??? Your skin turns yellow. ??? You bruise or bleed easily. ??? You have severe diarrhea and abdominal cramps. ??? You have a severe headache. Summary ??? Antibiotic medicines are used to treat infections caused by bacteria, such as strep throat and UTIs. It is important that you take antibiotic medicines only when needed. ??? Your health care provider may change or stop the antibiotic depending on your test results. ??? Most antibiotics can cause an infection called Clostridium difficile (C. difficile), which causes severe diarrhea. Let your health care provider know if you develop diarrhea while taking an antibiotic. ??? Take the entire course of antibiotic that was prescribed. This information is not intended to replace advice given to you by your health care provider. Make sure you discuss any questions you have with your health care provider. Document Released: 05/30/2005 Document Revised: 09/18/2017 Document Reviewed: 09/18/2017 [employer] Interactive Patient Education ?? 2019 [employer]
--- OUTSIDE RECORDS SUMMARY | 2023-02-15 21:24 | XMS_ITS | Referral Summary ---
Author Name Unknown Organization [facility] Address [address] [facility] [place] [id number] [id number] Date(s): 07/20/21 - 07/29/[address] [place]ANNON TREVIZO [id number] [phone] Encounter Diagnosis Obstructive uropathy(Discharge Diagnosis) - 07/25/21 Hyperphosphatemia(Discharge Diagnosis) - 07/25/21 Hyperkalemia(Discharge Diagnosis) - 07/25/21 CLARI (acute kidney injury)(Discharge Diagnosis) - 07/21/21 UTI (urinary tract infection)(Discharge Diagnosis) - 07/21/21 Swelling of lower extremity(Discharge Diagnosis) - 07/21/21 Discharge Disposition: Left Against Medical Advice Attending Physician: MD Powell Jennifer Admitting Physician: MD Wiggins Khalil Vital Signs Most recent to oldest [Reference Range]: 1 2 3 Height 170.18 cm (07/20/21 8:10 PM) Patient Weight 80.6 kg (07/20/21 8:10 PM) Body Mass Index 27.83 kg/m2 (07/20/21 8:10 PM) Temperature [36.5-37.9 DegC] 36.4 DegC *LOW* (07/29/21 8:14 AM) 36.9 DegC (07/29/21 6:00 AM) 37.0 DegC (07/28/21 7:37 PM) Heart Rate 78 bpm (07/29/21 8:14 AM) 68 bpm (07/29/21 6:00 AM) 65 bpm (07/28/21 7:37 PM) Respiratory Rate 16 br/min (07/29/21 8:14 AM) 18 br/min (07/29/21 6:00 AM) 18 br/min (07/28/21 7:37 PM) Blood Pressure 127/67mmHg (07/29/21 8:14 AM) 122/65mmHg (07/29/21 6:00 AM) 120/63mmHg (07/28/21 7:37 PM) Mean Blood Pressure 87 mmHg (07/29/21 8:14 AM) 76 mmHg (07/29/21 6:00 AM) 76 mmHg (07/28/21 7:37 PM) Cuff Pulse Pressure 60 mmHg (07/29/21 8:14 AM) 57 mmHg (07/29/21 6:00 AM) 31 mmHg (07/28/21 11:41 AM) BP Location # 1 Left Arm (07/28/21 11:41 AM) Left Arm (07/28/21 7:18 AM) Left Arm (07/27/21 8:15 PM) Problem List Condition Effective Dates Status Health Status Inform ant Bronchitis(Confirmed) Active CHF (congestive heart failure)(Confirmed) Active Diabetes(Confirmed) Active Allergies, Adverse Reactions, Alerts Substance Reaction Severity Status Toradol Active Keflex sick Active Medications doxycycline monohydrate 100 mg oral capsule Start: 07/29/21 15:48:00 EDT, 14 each Start Date: 07/29/21 Status: Ordered HumaLOG Sliding Scale Low injection, subQ, 07/28/21 7:30:00 EDT, 07/28/21 7:30:00 EDT, Estimated correction need for patientsusing total insulin daily dose between 31 and 60 units. Start Date: 07/28/21 Stop Date: 07/28/21 Status: Completed ibuprofen 600 mg oral tablet Start: 07/29/21 15:48:00 EDT, 30 each Start Date: 07/29/21 Status: Ordered tamsulosin 0.4 mg oral capsule Start: 07/29/21 8:22:00 EDT, 1 cap, PO, Daily, Disp# 30 cap, Note to Pharmacy: [email or web address] leaving today,Pharmacy: [facility] Start Date: 07/29/21 Stop Date: 08/28/21 Status: Ordered Results Most recent to oldest [Reference Range]: 1 2 3 Blood Glucose [70-120 mg/dL] 125 mg/dL *HI* (07/28/21 9:29 AM) 191 mg/dL *HI* (07/27/21 4:21 PM) 212 mg/dL *HI* (07/27/21 11:29 AM) Blood Glucose Ref Range [70 - 120 mg/dl] (07/28/21 9:40 PM) [70 - 120 mg/dl] (07/27/21 10:19 PM) [70 - 120 mg/dl] (07/27/21 6:21 PM) Request of Physician magnesium level (07/26/21 5:44 AM) UCx pls (07/21/21 7:52 PM) Action Taken Test NOT added becau se: 1 (07/26/21 5:44 AM) YES 2 (07/21/21 7:52 PM) Estimated CrCl 24.78 mL/min (07/29/21 8:31 AM) 24.15 mL/min (07/28/21 7:47 AM) 25.06 mL/min (07/27/21 12:05 PM) Estimated GFR, Black Race [>60 mL/min/1.73 m2] 28 mL/min/1.73 m2 *LOW* (07/29/21 7:33 AM) 27 mL/min/1.73 m2 *LOW* (07/28/21 6:56 AM) 29 mL/min/1.73 m2 *LOW* (07/27/21 10:57 AM) Estimated GFR, non-Black Race [>60 mL/min/1.73 m2] 23 mL/min/1.73 m2 *LOW* (07/29/21 7:33 AM) 23 mL/min/1.73 m2 *LOW* (07/28/21 6:56 AM) 24 mL/min/1.73 m2 *LOW* (07/27/21 10:57 AM) MPV [9.0-12.2 fL] 10.8 fL (07/27/21 10:57 AM) 10.1 fL (07/21/21 4:40 AM) Immature Gran% 0.2 % (07/21/21 4:40 AM) Neut% 64.2 % (07/21/21 4:40 AM) Lymph% 22.4 % (07/21/21 4:40 AM) Amite% 7.4 % (07/21/21 4:40 AM) Baso% 1.1 % (07/21/21 4:40 AM) Eos% 4.7 % (07/21/21 4:40 AM) Immat Gran, Abs [0-0.4 K/uL] 0.01 K/uL (07/21/21 4:40 AM) Neut, Abs [2.0-7.7 K/uL] 3.92 K/uL (07/21/21 4:40 AM) Lymph, Abs [1.0-3.4 K/uL] 1.37 K/uL (07/21/21 4:40 AM) Amite, Abs [0-1.0 K/uL] 0.45 K/uL (07/21/21 4:40 AM) Baso, Abs [0-0.1 K/uL] 0.07 K/uL (07/21/21 4:40 AM) Eos, Abs [0-0.5 K/uL] 0.29 K/uL (07/21/21 4:40 AM) Type of Diff: AUTO (07/21/21 4:40 AM) RDW [11.5-14.2 %] 15.0 % *HI* (07/27/21 10:57 AM) 15.4 % *HI* (07/21/21 4:40 AM) Squamous Epithelial Cells (u) NONE (07/21/21 6:31 AM) Anion Gap [5-14 mmol/L] 14 mmol/L (07/29/21 7:33 AM) 11 mmol/L (07/28/21 6:56 AM) 13 mmol/L (07/27/21 10:57 AM) Alb [3.5-5.2 g/dL] 3.8 g/dL (07/29/21 7:33 AM) 3.5 g/dL (07/28/21 6:56 AM) 3.6 g/dL (07/27/21 10:57 AM) Alk Phos [40-130 unit/L] 79 unit/L (07/21/21 4:40 AM) ALT [0-41 unit/L] 9 unit/L (07/21/21 4:40 AM) AST [0-40 unit/L] 13 unit/L 3 (07/21/21 4:40 AM) Bact (u) [NONE-NONE] FEW *Abnormal* (07/21/21 6:31 AM) Bili (u) [NEG] NEGATIVE (07/21/21 6:31 AM) BUN [6-23 mg/dL] 67 mg/dL *HI* (07/29/21 7:33 AM) 65 mg/dL *HI* (07/28/21 6:56 AM) 60 mg/dL *HI* (07/27/21 10:57 AM) Ca [8.4-10.2 mg/dL] 8.8 mg/dL (07/29/21 7:33 AM) 8.6 mg/dL (07/28/21 6:56 AM) 8.8 mg/dL (07/27/21 10:57 AM) Cl- [98-107 mmol/L] 107 mmol/L (07/29/21 7:33 AM) 108 mmol/L *HI* (07/28/21 6:56 AM) 107 mmol/L (07/27/21 10:57 AM) HCO3 [22-29 mmol/L] 20 mmol/L *LOW* (07/29/21 7:33 AM) 21 mmol/L *LOW* (07/28/21 6:56 AM) 21 mmol/L *LOW* (07/27/21 10:57 AM) Cret [0.70-1.30 mg/dL] 2.70 mg/dL *HI* (07/29/21 7:33 AM) 2.77 mg/dL *HI* (07/28/21 6:56 AM) 2.67 mg/dL *HI* (07/27/21 10:57 AM) Glu [74-109 mg/dL] 121 mg/dL 4 *HI* (07/29/21 7:33 AM) 126 mg/dL 5 *HI* (07/28/21 6:56 AM) 187 mg/dL 6 *HI* (07/27/21 10:57 AM) Gluc Meter [70-120 mg/dL] 184 mg/dL *HI* (07/28/21 11:16 AM) 125 mg/dL *HI* (07/28/21 7:43 AM) 191 mg/dL *HI* (07/27/21 4:21 PM) Hct [39-48 %] 31.7 % *LOW* (07/27/21 10:57 AM) 33.7 % *LOW* (07/21/21 4:40 AM) Hgb [13.0-17.0 g/dL] 9.4 g/dL *LOW* (07/27/21 10:57 AM) 9.8 g/dL *LOW* (07/21/21 4:40 AM) INR [0.9-1.1] REQUEST CREDITED 7 (07/22/21 6:33 PM) K [3.5-5.1 mmol/L] 5.0 mmol/L (07/29/21 7:33 AM) 5.0 mmol/L (07/28/21 6:56 AM) 4.8 mmol/L (07/27/21 10:57 AM) Ketones [NEG mg/dL] NEGATIVE mg/dL (07/21/21 6:31 AM) Leuk Est [NEG] LARGE *Abnormal* (07/21/21 6:31 AM) MCH [28-33 pg] 27.7 pg *LOW* (07/27/21 10:57 AM) 27.1 pg *LOW* (07/21/21 4:40 AM) MCHC [32-36 g/dL] 29.7 g/dL *LOW* (07/27/21 10:57 AM) 29.1 g/dL *LOW* (07/21/21 4:40 AM) MCV [81-96 fL] 93.5 fL (07/27/21 10:57 AM) 93.4 fL (07/21/21 4:40 AM) Mg [1.6-2.6 mg/dL] 2.1 mg/dL (07/29/21 7:33 AM) 2.1 mg/dL (07/28/21 6:56 AM) 2.0 mg/dL (07/27/21 10:57 AM) Na [136-145 mmol/L] 141 mmol/L (07/29/21 7:33 AM) 140 mmol/L (07/28/21 6:56 AM) 141 mmol/L (07/27/21 10:57 AM) Nitrite (u) [NEG] NEGATIVE (07/21/21 6:31 AM) PO4 [2.5-4.5 mg/dL] 4.3 mg/dL (07/29/21 7:33 AM) 3.7 mg/dL (07/28/21 6:56 AM) 3.9 mg/dL (07/27/21 10:57 AM) Plts [150-350 K/uL] 180 K/uL (07/27/21 10:57 AM) 224 K/uL (07/21/21 4:40 AM) PT [12.0-14.2 seconds] REQUEST CREDITED seconds 8 (07/22/21 6:33 PM) RBC [4.40-5.60 M/uL] 3.39 M/uL *LOW* (07/27/21 10:57 AM) 3.61 M/uL *LOW* (07/21/21 4:40 AM) T Bili [0.0-1.2 mg/dL] 0.1 mg/dL (07/21/21 4:40 AM) Prot [6.4-8.3 g/dL] 8.7 g/dL *HI* (07/21/21 4:40 AM) Appear (u) CLOUDY (07/21/21 6:31 AM) Color (u) YELLOW (07/21/21 6:31 AM) Glu (u) [NEG mg/dL] NEGATIVE mg/dL (07/21/21 6:31 AM) Hgb (u) [NEG] MODERATE *Abnormal* (07/21/21 6:31 AM) pH (u) [5.0-8.0 unit] 6.0 unit (07/21/21 6:31 AM) Prot (u) [NEG mg/dL] 30 mg/dL *Abnormal* (07/21/21 6:31 AM) RBC (u) [0-4 /HPF] 20-29 /HPF (07/21/21 6:31 AM) Urobili [0.1-1.0 EU/dL] 0.1-1.0 EU/dL (07/21/21 6:31 AM) SG [1.005-1.030] 1.010 (07/21/21 6:31 AM) WBC (u) [0-4 /HPF] 50+ /HPF (07/21/21 6:31 AM) WBC [4.0-10.4 K/uL] 4.72 K/uL (07/27/21 10:57 AM) 6.11 K/uL (07/21/21 4:40 AM) 1Result Comment: DUPLICATE REQUEST 2Result Comment: Corrected on 07/21 AT 2155: Previously reported as FORWARDED TO TESTING LAB 3Result Comment: HEMOLYZED SPECIMEN 4Result Comment: ADA recommendation for FASTING Serum/Plasma Glucose: Normal: 70-100 mg/dL Prediabetes: 100-125 mg/dL Diabetes: 126 mg/dL or higher 5Result Comment: ADA recommendation for FASTING Serum/Plasma Glucose: Normal: 70-100 mg/dL Prediabetes: 100-125 mg/dL Diabetes: 126 mg/dL or higher 6Result Comment: ADA recommendation for FASTING Serum/Plasma Glucose: Normal: 70-100 mg/dL Prediabetes: 100-125 mg/dL Diabetes: 126 mg/dL or higher 7Result Comment: PATIENT REFUSED COLLECTION 8Result Comment: PATIENT REFUSED COLLECTION Microbiology Reports TEST:Urine.Cx STATUS:Auth (Verified) BODY SITE: SOURCE:Urine COLLECTED DATE/TIME:07/21/21 6:31 AM Status FINAL 07/23/2021 Immunizations Not Given Vaccine Date Status Refusal Reason pneumococcal 23-valent vaccine 07/17/21 Not Given Patient Refuses Social History Social History Type Response Smoking Status Current every day he daniele smoker
--- OUTSIDE RECORDS SUMMARY | 2023-02-15 21:24 | XMS_ITS | Referral Summary ---
Author Name Unknown Organization [facility] Address [address] [place] [address]- Care Team Providers Care Cuff Matcher Name Role Phone No, PCP Primary Care Physician Unavailab le Encounter [facility] [id number] Date(s): 12/03/16 - 12/03/16 [facility] [address] [place] [address]- Discharge Diagnosis: Diabetes Discharge Disposition: Discharge to Home Attending Physician: DO Jack Michael R Referring Physician: Mery, Referring Vital Signs Most recent to oldest [Reference Range]: 1 Height 170 cm (12/03/16 10:00 PM) Patient Weight 90.6 kg (12/03/16 10:00 PM) Body Mass Index 31.35 kg/m2 (12/03/16 10:00 PM) Temperature [36.5-38.0 DegC] 36.3 DegC *LOW* (12/03/16 10:00 PM) Heart Rate 89 bpm (12/03/16 10:00 PM) Respiratory Rate 22 br/min (12/03/16 10:00 PM) Blood Pressure 144/82mmHg (12/03/16 10:00 PM) BP Location # 1 Left Arm (12/03/16 10:00 PM) Problem List No data available for this section Allergies, Adverse Reactions, Alerts Substance Reaction Severity Status Keflex sick Active Toradol Active Medications albuterol CFC free 90 mcg/inh MDI Start: 08/14/16 22:07:00, 2 puff, inhaled, q2h, PRN: Shortness of Breath Start Date: 08/14/16 Status: Ordered Lasix 20 mg oral tablet Start: 07/25/14 19:43:41, 1 tab, PO, Daily, Disp# 30 tab Start Date: 07/25/14 Stop Date: 08/24/14 Status: Ordered metFORMIN Start: 12/03/16 22:20:00 Start Date: 12/03/16 Status: Ordered Percocet 5/325 Start: 12/19/13 2:23:00, PO Start Date: 12/19/13 Status: Ordered Results No data available for this section Immunizations No data available for this section Procedures No data available for this section Social History Social History Type Response Smoking Status Never smoked cigaret felipe Assessment and Plan No data available for this section
--- OUTSIDE RECORDS SUMMARY | 2023-02-15 21:24 | XMS_ITS | Referral Summary ---
Author Name Unknown Organization [facility] er Address [address] [place] [address]- Care Team Providers Care Customer Engineer Name Role Phone No, PCP Primary Care Physician Unavailab le Encounter [facility] [id number] Date(s): 08/14/16 - 08/14/16 [facility] [address] [place] [address]- Discharge Diagnosis: Chronic hyperglycemia Discharge Diagnosis: Asthma Discharge Diagnosis: Acquired hammer toe Discharge Disposition: Discharge to Home Attending Physician: MD Marroquin Jeffrey S Referring Physician: Mery, Referring Vital Signs Most recent to oldest [Reference Range]: 1 2 3 Height 170 cm (08/14/16 7:34 PM) Patient Weight 95 kg (08/14/16 7:34 PM) Body Mass Index 32.87 kg/m2 (08/14/16 7:34 PM) Temperature [36.5-38.0 DegC] 36.7 DegC (08/14/16 7:34 PM) Heart Rate 102 bpm (08/14/16 10:25 PM) 98 bpm (08/14/16 10:16 PM) 100 bpm (08/14/16 7:34 PM) Respiratory Rate 20 br/min (08/14/16 10:25 PM) 20 br/min (08/14/16 10:16 PM) 22 br/min (08/14/16 7:34 PM) Blood Pressure 140/87mmHg (08/14/16 7:34 PM) Problem List No data available for [...] Date: 07/25/14 Stop Date: 08/24/14 Status: Ordered Percocet 5/325 Start: 12/19/13 2:23:00, PO Start Date: 12/19/13 Status: Ordered Results Endocrine Most recent to oldest [Reference Range]: 1 Gluc Meter [70-120 mg/dL] 314 mg/dL *HI* (08/14/16 9:30 PM) Blood Glucose [70-120 mg/dL] 314 mg/dL *HI* (08/14/16 9:31 PM) Blood Glucose Ref Range [70 - 120 mg/dl] (08/14/16 9:31 PM) Immunizations No data available for this section Procedures No data available for this section Social History Social History Type Response Smoking Status Current every day he daniele smoker Assessment and Plan No data available for this section
--- OUTSIDE RECORDS SUMMARY | 2023-02-15 21:24 | XMS_ITS | Continuity of Care Document ---
Author Name Unknown Organization [facility] Address [address] [place] [address] Encounter 12/23/20 - 12/24/20 [facility] [address] [place] [address] Encounter Diagnosis Hallux valgus of left foot(Discharge Diagnosis) - 12/23/20 Edema of left lower leg due to peripheral venous insufficiency(Discharge Diagnosis) - 12/23/20 CKD (chronic kidney disease)(Discharge Diagnosis) - 12/23/20 Cellulitis of left lower extremity(Discharge Diagnosis) - 12/23/20 Elevated blood pressure reading(Discharge Diagnosis) - 12/23/20 Discharge Disposition: Home or Self Care Attending Physician: DO Hubbard Taras M Admitting Physician: DO Hubbard Taras M Allergies, Adverse Reactions, Alerts Substance Reaction Severity Status Keflex Active Assessment and Plan Extracted from: Title:ED Note Author:JULIETA Navarro Brodrick Dar ren Date:12/23/20 1.??Hallux valgus of left fo ot??(M20.12) 2.??Edema of left lower leg due to peripheral venous insufficiency??(I87.2) 3.??CKD (chronic kidney disease)??(N18.9) 4.??Cellulitis of left lower extremity??(L03.116) Medications doxycycline hyclate 100 mg oral capsule 100 mg = 1 cap, Oral, Qday, X 10 days, # 10 cap, 0 Refill(s), 01/02/21 23:27:00 EDT Start Date: 12/23/20 Stop Date: 01/02/21 Status: Ordered Westlake 5 mg-325 mg oral tablet 1 tab, Oral, Q6H, PRN as needed for pain, X 3 days, # 12 tab, 0 Refill(s), 12/26/20 23:27:00 EDT Start Date: 12/23/20 Stop Date: 12/26/20 Status: Ordered Mental Status 12/23/20 Eye Opening Response Americo Spontaneous ly Best Verbal Response Americo Oriented Best Motor Response Americo Obeys comman ds Americo Coma Score 15 Problem List Diagnosis Diagnosis Type Effective Dates Health Status Clinical Service Informant Hallux valgus of left foot Discharge Diagnosis 12/23/20 Edema of left lower leg due to peripheral venous insufficiency Discharge Diagnosis 12/23/20 CKD (chronic kidney disease) Discharge Diagnosis 12/23/20 Cellulitis of left lower extremity Discharge Diagnosis 12/23/20 Elevated blood pressure reading Discharge Diagnosis 12/23/20 Results Most recent to oldest [Reference Range]: 1 Pharmacy Estimated Creatinine Clearance 35.59 mL/min (12/23/20 9:12 PM) Radiology Reports * Exam Date Time Procedure Performing Provider Status 12/23/20 11:06 PM XR Foot Complete 3+ Views Left DAISY COURTNEY; Silverio (Verified) Notes: (XR Foot Complete 3+ Views Left) Reason For Exam: left foot pain/swelling, Hx Hallux Valgus REPORT EXAM: LEFT FOOT COMPLETE - 3+ VIEWS CLINICAL DATA: left foot pain/swelling, Hx Hallux Valgus; Pt presents to ER via EMS for c/o bilateral LE pain , L>R. Pt states symptom has been occuring x 1 yr, worsening the last month. Pt reports that today he has walked over a mile and his feet just can't take it. COMPARISON: None. FINDINGS: Frontal, lateral, and oblique views of the left foot show pronounced hallux valgus alignment deformity at the great toe. There is dorsal, boutonniere like deformity of the 2nd digit with no appreciable fracture injury. Moderate midfoot osteoarthritis. Generalized, pronounced soft tissue swelling and stranding throughout the foot and included lower leg. IMPRESSION: Negative radiographs of the left foot for acute fracture with moderate midfoot osteoarthritis and boutonniere like deformity of the 2nd digit. Hallux valgus deformity at the great toe. Pronounced soft tissue swelling and stranding throughout the foot and included lower leg. SIGNATURE: Electronically Signed By: Christiano England On: 12/23/2020 23:17 Final Dictated by: MD Tomás, Lino Turner Dictated DT/TM: 12/23/2020 11:14 pm Signed by: MD Tomás, Lino Turner Signed (Electronic Signature): 12/23/2020 11:18 pm Vital Signs Most recent to oldest [Reference Range]: 1 2 Blood Pressure [91-140/90 mmHg] 158/92mm Hg *HI* (12/24/20 12:31 AM) 177/77mmHg *HI* (12/23/20 9:08 PM) Temperature Oral [36.1-37.8 Deg C] 36.8 Deg C (12/24/20 12:31 AM) 36.8 Deg C (12/23/20 9:08 PM) Heart Rate Monitored [50-100 bpm] 86 bpm (12/24/20 12:31 AM) 92 bpm (12/23/20 9:08 PM) Respiratory Rate [12-20 br/min] 18 br/mi n (12/24/20 12:31 AM) 20 br/min (12/23/20 9:08 PM) Social History Social History Type Response Tobacco Smoking tobacco use: 10+ cigarettes(1/2 pack or more)/day in last 30 days. Sex
--- OUTSIDE RECORDS SUMMARY | 2023-02-15 21:24 | XMS_ITS | Continuity of Care Document ---
Author Name Unknown Organization [facility] Address [address] [place] [phone] Encounter 11/17/21 - 11/17/[address] [facility] [address] [address] Encounter Diagnosis Pain in both feet(Discharge Diagnosis) - 11/17/21 Homelessness(Discharge Diagnosis) - 11/17/21 Chronic indwelling Oliveros catheter(Discharge Diagnosis) - 11/17/21 Discharge Disposition: Home or Self Care Attending Physician: MD Saunders Haley Admitting Physician: MD Saunders Haley Allergies, Adverse Reactions, Alerts Substance Reaction Severity Status Keflex Active Assessment and Plan Extracted from: Title:ED Note Author:MD Saunders Haley Date:11/17 1.??Pain in both feet??(M79. 671) 2.??Homelessness??(Z59.00) 3.??Chronic indwelling Oliveros catheter??(Z97.8) Medications Flomax 0.4 mg oral capsule 0.4 mg = 1 cap, Oral, Qday, # 30 cap, 0 Refill(s) Start Date: 09/10/21 Status: Ordered Mental Status 11/17/21 Eye Opening Response Americo Spontaneous ly Best Verbal Response Gilby Oriented Best Motor Response Americo Obeys comman ds Gilby Coma Score 15 Problem List Condition Effective Dates Status Health Status Inform ant Arthritis(Confirmed) Active BPH - benign prostatic hyperplasia(Confirmed) Active Chronic kidney disease(Confirmed) Active DM - Diabetes mellitus(Confirmed) Active Peripheral edema(Confirmed) Active Peripheral edema(Confirmed) Active Diagnosis Diagnosis Type Effective Dates Health Status Clinical Service Informant Pain in both feet Discharge Diagnosis 11/17/21 Homelessness Discharge Diagnosis 11/17/21 Chronic indwelling Oliveros catheter Discharge Diagnosis 11/17/21 Results Most recent to oldest [Reference Range]: 1 Pharmacy Estimated Creatinine Clearance 19.31 mL/min (11/17/21 8:11 PM) Vital Signs Most recent to oldest [Reference Range]: 1 2 Blood Pressure [91-140/90 mmHg] 146/72mm Hg *HI* (11/17/21 10:15 PM) 150/67mmHg *HI* (11/17/21 8:05 PM) Temperature Oral [36.1-37.8 Deg C] 37.0 Deg C (11/17/21 10:15 PM) 37.2 Deg C (11/17/21 8:05 PM) Heart Rate Monitored [50-100 bpm] 92 bpm (11/17/21 10:15 PM) 97 bpm (11/17/21 8:05 PM) Respiratory Rate [12-20 br/min] 18 br/mi n (11/17/21 10:15 PM) 18 br/min (11/17/21 8:05 PM) Social History Social History Type Response Tobacco Smoking tobacco use: 10+ cigarettes(1/2 pack or more)/day in last 30 days. Type: Cigarettes. Sex
--- OUTSIDE RECORDS SUMMARY | 2023-02-15 21:24 | XMS_ITS | Referral Summary ---
Author Name Unknown Organization [facility] Address [address] [place] [phone] Encounter [facility] [id number] Date(s): 01/07/20 - 01/08/20 [facility] [address] [place] [address] Encounter Diagnosis Chronic leg pain(Discharge Diagnosis) - 01/08/20 Discharge Disposition: Home or Self Care Attending Physician: MD Park Manuel Vital Signs Most recent to oldest [Reference Range]: 1 Height 170.18 cm (01/07/20 10:58 PM) Patient Weight 86.18 kg (01/07/20 10:58 PM) Body Mass Index 29.76 kg/m2 (01/07/20 10:58 PM) Temperature [36.5-38 DegC] 36.5 DegC (01/07/20 10:47 PM) Heart Rate 98 bpm (01/07/20 10:47 PM) Respiratory Rate 18 br/min (01/07/20 10:47 PM) Blood Pressure 142/84mmHg (01/07/20 10:47 PM) Allergies, Adverse Reactions, Alerts Substance Reaction Severity Status Toradol Active Keflex sick Active Medications Lasix 20 mg oral tablet Start: 07/25/14 19:43:41, 1 tab, PO, Daily, Disp# 30 tab Start Date: 07/25/14 Stop Date: 08/24/14 Status: Ordered metFORMIN Start: 12/03/16 22:20:00 Start Date: 12/03/16 Status: Ordered Percocet 5/325 Start: 12/19/13 2:23:00, PO Start Date: 12/19/13 Status: Ordered Social History Social History Type Response Smoking Status Current every day he daniele smoker
--- OUTSIDE RECORDS SUMMARY | 2023-02-15 21:24 | XMS_ITS | CCD ---
Author Name Unknown Address [address] [place] [id number] Organization Unknown Address [address] [place] [phone] Care Team Providers Care Administration Internship Name Role Phone GONZÁLEZ GRAHAM MD Attending Physician [phone] GISEL SAAVEDRA Er Physician [phone] Vital Signs Unknown or Not Available. Allergies Unknown or Not Available. Procedures Unknown or Not Available. History of Immunizations Unknown or Not Available. Problems Problem Code Start Date Resolved Date Status NIDDM 60014466 Active Chronic kidney disease 604056817 Ac tive Homeless 42231930 02/12/2023 Active Results URINALYSIS WITH REFLEX CULT IF POSITIVE - Collect Date/Time: 05/20/2021 18:45 Test Name Code Test Result Test Units Test Ref Rang e COLLECTION MODE: Clean Catch N/A Color 5778-6 YELLOW N/A yellow Appearance 5767-9 CLOUDY N/A clear Glucose urine 39433-0 NEGATIVE N/A negative mg /dl Bilirubin 5770-3 NEGATIVE N/A negative Ketones 2514-8 NEGATIVE N/A negative mg/dl Spec gravity 5811-5 1.015 N/A 1.003 - 1.03 0 pH urine 2756-5 5.5 N/A 5.0 - 7.0 Protein 52761-4 30 N/A negative mg/dl Urobilinogen 54334-0 0.2 N/A <or= 1 EU/dl Nitrite. 5802-4 NEGATIVE N/A negative Blood 5794-3 MODERATE N/A negative Leukocytes. LARGE N/A negative MICROSCOPIC INDICATED N/A WBCs. 54779-1 >100 N/A 0-5 / hpf RBCs 59294-2 25-100 N/A 0-5 / hpf Epith cells 03073-6 none N/A 0-5 / hpf Crystals none N/A none Bacteria large N/A none Mucus 8247-9 none N/A none Casts 15695-4 none N/A none /lpf Active Medications Unknown or Not Available. Medications Administered During Visit Unknown or Not Available. Encounters Encounter Diagnosis Diagnosis Code Start Date Pain in left ankle and joints of left foot [id number] 2 05/20/2021 Social History Smoking Status Code Start Date End Date Current every day smoker [id number] Patient Decision Aids Unknown or Not Available. Discharge Instructions You were admitted to [facility] on 05/20/2021 17:25 with a principal diagnosis of Pain in left ankle and joints of left foot You had the following tests done:URINALYSIS WITH REFLEX CULT IF POSITIVE You were discharged from [facility] on 05/20/2021 20:15 Should you have any questions prior to discharge, please contact a member of your healthcare team. If you have left the hospital and have any questions, please contact your primary care physician. Chief Complaint and Reason For Visit Chief Complaint Date of Onset L LEG SWELLING Function Status Unknown or Not Available. Plan of Care Unknown or Not Available. Referral/Transition of Care Unknown or Not Available.
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
--- OUTSIDE RECORDS SUMMARY | 2023-02-15 21:24 | XMS_ITS | Referral Summary ---
Author Name Unknown Organization [facility] Address [address] [facility] [place] [address] Encounter [facility] HUGOYAYO [id number] Date(s): 01/12/20 - 01/12/[address] [place] [address] Encounter Diagnosis Procedure and treatment not carried out due to patient leaving prior to being seen by health care provider(Final) - Discharge Disposition: Left Against Medical Advice Attending Physician: DO Yeboah Kevin Vital Signs Most recent to oldest [Reference Range]: 1 Height 170.18 cm (01/12/20 4:21 PM) Patient Weight 87 kg (01/12/20 4:21 PM) Body Mass Index 30.04 kg/m2 (01/12/20 4:21 PM) Temperature [36.5-38 DegC] 36.9 DegC (01/12/20 4:21 PM) Heart Rate 96 bpm (01/12/20 4:21 PM) Respiratory Rate 15 br/min (01/12/20 4:21 PM) Blood Pressure 142/63mmHg (01/12/20 4:21 PM) Mean Blood Pressure 82 mmHg (01/12/20 4:21 PM) Cuff Pulse Pressure 79 mmHg (01/12/20 4:21 PM) BP Location # 1 Left Arm (01/12/20 4:21 PM) Problem List Condition Effective Dates Status [...]
--- OUTSIDE RECORDS SUMMARY | 2023-02-15 21:24 | XMS_ITS | Referral Summary ---
Author Name Unknown Organization [facility] Address 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 [place] [address]- Discharge Diagnosis: Diabetes Discharge Diagnosis: Medicine refill Discharge Disposition: Discharge to Home Attending Physician: MD Carmen, Fernando Molina Referring Physician: Mery, Referring Vital Signs Most recent to oldest [Reference Range]: 1 Height 170 cm (07/13/17 4:12 PM) Patient Weight 90.60 kg (07/13/17 4:12 PM) Body Mass Index 31.35 kg/m2 (07/13/17 4:12 PM) Temperature [36.5-38.0 DegC] 36.8 DegC (07/13/17 4:12 PM) Heart Rate 89 bpm (07/13/17 4:12 PM) Respiratory Rate 18 br/min (07/13/17 4:12 PM) Blood Pressure 133/64mmHg (07/13/17 4:12 PM) Allergies, Adverse Reactions, Alerts Substance Reaction [...]
--- OUTSIDE RECORDS SUMMARY | 2023-02-15 21:24 | XMS_ITS | Continuity of Care Document ---
Author Name Unknown Organization [facility] Address [address] [place] [address] Encounter 12/15/20 - 12/16/20 [facility] [address] [place] [address] Encounter Diagnosis Peripheral edema(Discharge Diagnosis) - 12/15/20 CKD (chronic kidney disease)(Discharge Diagnosis) - 12/15/20 Discharge Disposition: Home or Self Care Attending Physician: MD Huang Jamie L Admitting Physician: MD Huang Jamie L Allergies, Adverse Reactions, Alerts Substance Reaction Severity Status Keflex Active Assessment and Plan Extracted from: Title:ED Note Author:MD Reina, Bobbi Puri Date:12/16/20 1.??Peripheral edema??(R60.9 ) 2.??CKD (chronic kidney disease)??(N18.9) Mental Status 12/15/20 Eye Opening Response Americo Spontaneous ly Best Verbal Response [place] Oriented Best Motor Response Americo Obeys comman ds Americo Coma Score 15 Problem List Diagnosis Diagnosis Type Effective Dates Health Status Clinical Service Informant Peripheral edema Discharge Diagnosis 12/15/20 CKD (chronic kidney disease) Discharge Diagnosis 12/15/20 Procedures Procedure Date Related Diagnosis Body Site Status ROUTINE VENIPUNCTURE 12/15/20 Comp leted Results Laboratory List Name Date .Automated Diff 12/15/20 CBC w/ Diff 12/15/20 Comprehensive Metabolic Panel 12/15/20 PT (with INR) 12/15/20 PTT 12/15/20 Most recent to oldest [Reference Range]: 1 Pharmacy Estimated Creatinine Clearance 35.59 mL/min (12/15/20 11:12 PM) RBC [4.70-6.10 x10^6/mcL] 3.77 x10^6/mcL *LOW* (12/15/20 10:37 PM) Neutrophil % [40.0-64.0 %] 68.3 % *HI* (12/15/20 10:37 PM) Lymphocyte % [22.0-44.0 %] 19.8 % *LOW* (12/15/20 10:37 PM) Monocyte % [4.0-14.0 %] 7.4 % (12/15/20 10:37 PM) Basophil % [0.0-2.0 %] 0.8 % (12/15/20 10:37 PM) Prothrombin Time (PT) [12.1-15.6 seconds ] 13.1 seconds (12/15/20 10:37 PM) INR 0.92 *NA* (12/15/20 10:37 PM) BUN [6-20 mg/dL] 32 mg/dL *HI* (12/15/20 10:37 PM) Glucose Level [75-110 mg/dL] 150 mg/dL *HI* (12/15/20 10:37 PM) Potassium Level [3.5-5.0 mmol/L] 3.9 mmo l/L (12/15/20 10:37 PM) Basophil Absolute [0.00-0.20 x10^3/mcL] 0.06 x10^3/mcL (12/15/20 10:37 PM) MCV [80.0-95.0 fL] 95.5 fL *HI* (12/15/20 10:37 PM) AST [17-59 unit/L] 23 unit/L (12/15/20 10:37 PM) ALT [0-49 unit/L] 28 unit/L (12/15/20 10:37 PM) MCHC [32.0-36.0 g/dL] 30.6 g/dL *LOW* (12/15/20 10:37 PM) Sodium Level [135-145 mmol/L] 140 mmol/L (12/15/20 10:37 PM) Lymphocyte Absolute [1.10-4.80 x10^3/mcL ] 1.50 x10^3/mcL (12/15/20 10:37 PM) Hematocrit [42.0-52.0 %] 36.0 % *LOW* (12/15/20 10:37 PM) Partial Thromboplastin Time (PTT) [25.0- 36.0 seconds] 32.1 seconds (12/15/20 10:37 PM) Calcium Level [8.4-10.2 mg/dL] 8.5 mg/dL (12/15/20 10:37 PM) Monocyte Absolute [0.20-1.50 x10^3/mcL] 0.56 x10^3/mcL (12/15/20 10:37 PM) Albumin Level [3.5-5.0 g/dL] 3.9 g/dL (12/15/20 10:37 PM) Protein Total [6.3-8.2 g/dL] 7.5 g/dL (12/15/20 10:37 PM) MCH [27.0-32.0 pg] 29.2 pg (12/15/20 10:37 PM) Neutrophil Absolute [1.90-7.60 x10^3/mcL ] 5.16 x10^3/mcL (12/15/20 10:37 PM) Bilirubin, Total [0.1-1.2 mg/dL] 0.2 mg/ dL (12/15/20 10:37 PM) Hgb [14.0-18.0 g/dL] 11.0 g/dL *LOW* (12/15/20 10:37 PM) Alkaline Phosphatase [50-250 unit/L] 106 unit/L (12/15/20 10:37 PM) WBC Count [4.80-10.80 x10^3/mcL] 7.56 x1 0^3/mcL (12/15/20 10:37 PM) Platelets [150-450 x10^3/mcL] 244 x10^3/ mcL (12/15/20 10:37 PM) Eosinophil Absolute [0.00-0.50 x10^3/mcL ] 0.26 x10^3/mcL (12/15/20 10:37 PM) RDW [11.5-14.5 %] 13.9 % (12/15/20 10:37 PM) eGFR Non- 34 mL/min/1.73 m2 *NA* (12/15/20 10:37 PM) eGFR 39 mL/min/1.73 m2 *NA* (12/15/20 10:37 PM) Chloride Level [98-109 mmol/L] 107 mmol/ L (12/15/20 10:37 PM) Immature Granulocyte % [0.0-5.0 %] 0.3 % (12/15/20 10:37 PM) NRBC % [0.0-0.1 %] 0.0 % (12/15/20 10:37 PM) Immature Granulocyte Absolute [0.00-0.50 x10^3/mcL] 0.02 x10^3/mcL (12/15/20 10:37 PM) NRBC Absolute [<=0.00 x10^3/mcL] 0.00 x1 0^3/mcL (12/15/20 10:37 PM) Calculated Osmolality [261-280 mOsm/kg] 300 mOsm/kg *HI* (12/15/20 10:37 PM) BUN/Creatinine Ratio 16.7 ratio *NA* (12/15/20 10:37 PM) CO2 Level [27-32 mmol/L] 24 mmol/L *LOW* (12/15/20 10:37 PM) Creatinine Level [0.66-1.25 mg/dL] 1.92 mg/dL *HI* (12/15/20 10:37 PM) Anion Gap [3-11] 9 (12/15/20 10:37 PM) Eosinophil % [0.0-5.0 %] 3.4 % (12/15/20 10:37 PM) Vital Signs Most recent to oldest [Reference Range]: 1 Blood Pressure [91-140/90 mmHg] 166/92mm Hg *HI* (12/15/20 7:18 PM) Temperature Oral [36.1-37.8 Deg C] 36.7 Deg C (12/15/20 7:18 PM) Pulse Rate [50-100 bpm] 99 bpm (12/15/20 7:18 PM) Mean Arterial Pressure, Cuff [65-140 mmH g] 117 mmHg (12/15/20 7:18 PM) Social History Social History Type Response Tobacco Smoking tobacco use: 10+ cigarettes(1/2 pack or more)/day in last 30 days. Sex
--- OUTSIDE RECORDS SUMMARY | 2023-02-15 21:24 | XMS_ITS | Continuity of Care Document ---
Author Name Unknown Organization [facility] Address [address] [place] [address] Encounter 09/10/21 - 09/10/21 [facility] [address] [place] [address] [place] Encounter Diagnosis Chronic kidney disease(Discharge Diagnosis) - 09/10/21 Discharge Disposition: Left Against Medical Advice Attending Physician: MD Mcneil John Admitting Physician: MD Mcneil John Allergies, Adverse Reactions, Alerts Substance Reaction Severity Status Keflex Active Medications Flomax 0.4 mg oral capsule 0.4 mg = 1 cap, Oral, Qday, # 30 cap, 0 Refill(s) Start Date: 09/10/21 Status: Ordered Lasix 20 mg = 1 tab, Oral, Tab, Once, First Dose: 09/10/21 21:02:00 EST, Stop Date: 09/10/21 21:02:00 EST, STAT Start Date: 09/10/21 Stop Date: 09/10/21 Status: Completed Mental Status 09/10/21 Eye Opening Response Jane Lew Spontaneous ly Best Verbal Response Americo Oriented Best Motor Response Americo Obeys comman ds Jane Lew Coma Score 15 Problem List Condition Effective Dates Status Health Status Inform ant Arthritis(Confirmed) Active BPH - benign prostatic hyperplasia(Confirmed) Active Chronic kidney disease(Confirmed) Active DM - Diabetes mellitus(Confirmed) Active Peripheral edema(Confirmed) Active Diagnosis Diagnosis Type Effective Dates Health Status Cl inical Service Informant Chronic kidney disease Discharge Diagnosis 09/10/21 Procedures Procedure Date Related Diagnosis Body Site Status ROUTINE VENIPUNCTURE 09/10/21 Comp leted Results Laboratory List Name Date .Automated Diff 09/10/21 CBC w/ Diff 09/10/21 Comprehensive Metabolic Panel 09/10/21 Most recent to oldest [Reference Range]: 1 2 3 Pharmacy Estimated Creatinine Clearance 19.57 mL/min (09/10/21 10:08 PM) 19.57 mL/min (09/10/21 9:40 PM) 35.39 mL/min (09/10/21 8:14 PM) RBC [4.70-6.10 x10^6/mcL] 3.24 x10^6/mcL *LOW* (09/10/21 9:15 PM) Neutrophil % [40.0-64.0 %] 54.7 % (09/10/21 9:15 PM) Lymphocyte % [22.0-44.0 %] 25.4 % (09/10/21 9:15 PM) Monocyte % [4.0-14.0 %] 13.5 % (09/10/21 9:15 PM) Basophil % [0.0-2.0 %] 1.0 % (09/10/21 9:15 PM) BUN [7-17 mg/dL] 58 mg/dL *HI* (09/10/21 9:15 PM) Glucose Level [65-105 mg/dL] 138 mg/dL *HI* (09/10/21 9:15 PM) Potassium Level [3.5-5.0 mmol/L] 5.3 mmol/L *HI* (09/10/21 9:15 PM) Basophil Absolute [0.0-0.2 x10^3/mcL] 0.0 x10^3/mcL (09/10/21 9:15 PM) MCV [80-95 fL] 93 fL (09/10/21 9:15 PM) AST [17-59 unit/L] 24 unit/L (09/10/21 9:15 PM) ALT [0-49 unit/L] 21 unit/L (09/10/21 9:15 PM) MCHC [32.0-36.0 g/dL] 30.8 g/dL *LOW* (09/10/21 9:15 PM) Sodium Level [135-145 mmol/L] 140 mmol/L (09/10/21 9:15 PM) Lymphocyte Absolute [1.1-4.8 x10^3/mcL] 1.0 x10^3/mcL *LOW* (09/10/21 9:15 PM) Hematocrit [42.0-52.0 %] 30.2 % *LOW* (09/10/21 9:15 PM) Calcium Level [8.4-10.2 mg/dL] 8.2 mg/dL *LOW* (09/10/21 9:15 PM) Monocyte Absolute [0.2-1.5 x10^3/mcL] 0.5 x10^3/mcL (09/10/21 9:15 PM) Albumin Level [3.5-5.0 g/dL] 4.1 g/dL (09/10/21 9:15 PM) Protein Total [6.3-8.2 g/dL] 7.3 g/dL (09/10/21 9:15 PM) MCH [27.0-32.0 pg] 28.7 pg (09/10/21 9:15 PM) Neutrophil Absolute [1.9-7.6 x10^3/mcL] 2.2 x10^3/mcL (09/10/21 9:15 PM) Bilirubin, Total [0.1-1.2 mg/dL] 0.2 mg/dL (09/10/21 9:15 PM) Hgb [14.0-18.0 g/dL] 9.3 g/dL *LOW* (09/10/21 9:15 PM) Alkaline Phosphatase [50-250 unit/L] 78 unit/L (09/10/21 9:15 PM) WBC Count [4.80-10.80 x10^3/mcL] 3.94 x10^3/mcL *LOW* (09/10/21 9:15 PM) Platelets [150-450 x10^3/mcL] 176 x10^3/mcL (09/10/21 9:15 PM) Eosinophil Absolute [0.0-0.5 x10^3/mcL] 0.2 x10^3/mcL (09/10/21 9:15 PM) RDW [11.5-14.5 %] 15.7 % *HI* (09/10/21 9:15 PM) eGFR Non- 16 mL/min/1.73 m2 *NA* (09/10/21 9:15 PM) eGFR 19 mL/min/1.73 m2 *NA* (09/10/21 9:15 PM) Chloride Level [98-109 mmol/L] 115 mmol/L *HI* (09/10/21 9:15 PM) Immature Granulocyte % [0.1-0.7 %] 0.3 % (09/10/21 9:15 PM) NRBC % [<=0.0 %] 0.0 % (09/10/21 9:15 PM) Immature Granulocyte Absolute [0.0-0.1 x10^3/mcL] 0.0 x10^3/mcL (09/10/21 9:15 PM) NRBC Absolute [<=0.0 x10^3/mcL] 0.0 x10^3/mcL (09/10/21 9:15 PM) Calculated Osmolality [261-280 mOsm/kg] 308 mOsm/kg *HI* (09/10/21 9:15 PM) BUN/Creatinine Ratio 16.7 ratio *NA* (09/10/21:15 PM) CO2 Level [27-32 mmol/L] 18 mmol/L *LOW* (09/10/21:15 PM) Creatinine Level [0.66-1.25 mg/dL] 3.48 mg/dL *HI* (09/10/21 9:15 PM) Anion Gap [3-11] 7 (09/10/21 9:15 PM) Eosinophil % [0.0-5.0 %] 5.1 % *HI* (09/10/21 9:15 PM) Vital Signs Most recent to oldest [Reference Range]: 1 2 3 Blood Pressure [91-140/90 mmHg] 143/67mmHg *HI* (09/10/21 10:00 PM) 143/67mmHg *HI* (09/10/21 9:30 PM) 157/67mmHg *HI* (09/10/21 9:08 PM) Temperature Oral [36.1-37.8 Deg C] 37.1 Deg C (09/10/21 8:08 PM) Heart Rate Monitored [50-100 bpm] 85 bpm (09/10/21 10:00 PM) 80 bpm (09/10/21 9:30 PM) 80 bpm (09/10/21 9:00 PM) Respiratory Rate [12-20 br/min] 17 br/min (09/10/21 10:00 PM) 17 br/min (09/10/21 9:30 PM) 18 br/min (09/10/21 9:00 PM) Mean Arterial Pressure, Cuff [65-140 mmHg] 97 mmHg (09/10/21 10:00 PM) 97 mmHg (09/10/21 9:30 PM) Social History Social History Type Response Tobacco Smoking tobacco use: 10+ cigarettes(1/2 pack or more)/day in last 30 days. Sex
--- OUTSIDE RECORDS SUMMARY | 2023-02-15 21:24 | XMS_ITS | Referral Summary ---
Author Name Unknown Organization [facility] Address [address] [facility] [place] [address] Encounter [facility] [id number] Date(s): 07/18/21 - 07/20/[address] [place] [address] [phone] Encounter Diagnosis Leg pain(Discharge Diagnosis) - 07/19/21 Renal failure(Discharge Diagnosis) - 07/19/21 UTI (urinary tract infection)(Discharge Diagnosis) - 07/19/21 Obstructive nephropathy(Discharge Diagnosis) - 07/20/21 Homeless(Discharge Diagnosis) - 07/20/21 Lower extremity edema(Discharge Diagnosis) - 07/20/21 Other obstructive and reflux uropathy(Final) - Type 2 diabetes mellitus without complications(Final) - Unspecified Escherichia coli [E. 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) - joint terminal attack controller (current) use of oral hypoglycemic drugs(Final) - Allergy status to other antibiotic agents(Final) - Acute kidney failure, unspecified(Final) - Acidosis(Final) - Discharge Disposition: Left Against Medical Advice Attending Physician: DO Hoang Audrey Admitting Physician: MD Diego, Skylar Vital Signs Most recent to oldest [Reference Range]: 1 2 3 Height 170.18 cm (07/18/21 7:18 PM) Patient Weight 84.3 kg (07/19/21 11:31 AM) 80.5 kg (07/18/21 7:18 PM) Body Mass Index 27.8 kg/m2 (07/18/21 7:18 PM) Temperature [36.5-37.9 DegC] 36.6 DegC (07/20/21 9:06 AM) 36.6 DegC (07/19/21 9:12 AM) 36.8 DegC (07/18/21 7:18 PM) Heart Rate 65 bpm (07/20/21 9:06 AM) 63 bpm (07/20/21 2:33 AM) 71 bpm (07/19/21 8:30 PM) Respiratory Rate 18 br/min (07/20/21 9:06 AM) 18 br/min (07/20/21 8:58 AM) 18 br/min (07/20/21 2:33 AM) Blood Pressure 117/66mmHg (07/20/21 9:06 AM) 127/68mmHg (07/20/21 2:33 AM) 128/69mmHg (07/19/21 8:30 PM) Mean Blood Pressure 82 mmHg (07/20/21 9:06 AM) 85 mmHg (07/20/21 2:33 AM) 86 mmHg (07/19/21 8:30 PM) Cuff Pulse Pressure 51 mmHg (07/20/21 9:06 AM) 59 mmHg (07/20/21 2:33 AM) 59 mmHg (07/19/21 8:30 PM) BP Location # 1 Right Arm (07/20/21 9:06 AM) Left Arm, Non-invasive (07/19/21 8:30 PM) Right Arm (07/19/21 9:12 AM) Problem List Condition Effective Dates Status Health Status Inform ant Bronchitis(Confirmed) Active CHF (congestive heart failure)(Confirmed) Active Diabetes(Confirmed) Active Allergies, Adverse Reactions, Alerts Substance Reaction Severity Status Toradol Active Keflex sick Active Medications HumaLOG Sliding Scale Low injection, subQ, 07/19/21 22:00:00 EDT, 07/19/21 22:00:00 EDT, Estimated correction need for patients using total insulin daily dose between 31 and 60 units. Start Date: 07/19/21 Stop Date: 07/19/21 Status: Completed Results Most recent to oldest [Reference Range]: 1 2 3 Blood Glucose [70-120 mg/dL] 161 mg/dL *HI* (07/20/21 12:35 PM) 175 mg/dL *HI* (07/19/21 9:36 PM) Estimated Average Glucose 180 mg/dL (07/19/21 4:47 AM) Blood Glucose Ref Range [70 - 120 mg/dl] (07/20/21 12:35 PM) Estimated CrCl 19.18 mL/min (07/20/21 8:43 AM) 18.37 mL/min (07/19/21 8:07 AM) Estimated GFR, Black Race [>60 mL/min/1.73 m2] 20 mL/min/1.73 m2 *LOW* (07/20/21 7:55 AM) 20 mL/min/1.73 m2 *LOW* (07/19/21 4:47 AM) Estimated GFR, non-Black Race [>60 mL/min/1.73 m2] 17 mL/min/1.73 m2 *LOW* (07/20/21 7:55 AM) 16 mL/min/1.73 m2 *LOW* (07/19/21 4:47 AM) MPV [9.0-12.2 fL] 10.3 fL (07/20/21 7:55 AM) 10.3 fL (07/19/21 4:47 AM) Immature Gran% 0.2 % (07/19/21 4:47 AM) Neut% 62.3 % (07/19/21 4:47 AM) Lymph% 22.8 % (07/19/21 4:47 AM) Sac% 8.2 % (07/19/21 4:47 AM) Baso% 1.0 % (07/19/21 4:47 AM) Eos% 5.5 % (07/19/21 4:47 AM) Immat Gran, Abs [0-0.4 K/uL] 0.01 K/uL (07/19/21 4:47 AM) Neut, Abs [2.0-7.7 K/uL] 3.28 K/uL (07/19/21 4:47 AM) Lymph, Abs [1.0-3.4 K/uL] 1.20 K/uL (07/19/21 4:47 AM) Sac, Abs [0-1.0 K/uL] 0.43 K/uL (07/19/21 4:47 AM) Baso, Abs [0-0.1 K/uL] 0.05 K/uL (07/19/21 4:47 AM) Eos, Abs [0-0.5 K/uL] 0.29 K/uL (07/19/21 4:47 AM) Type of Diff: AUTO (07/19/21 4:47 AM) RDW [11.5-14.2 %] 15.8 % *HI* (07/20/21 7:55 AM) 15.7 % *HI* (07/19/21 4:47 AM) Squamous Epithelial Cells (u) NONE (07/19/21 4:47 AM) Anion Gap [5-14 mmol/L] 12 mmol/L (07/20/21 7:55 AM) 16 mmol/L *HI* (07/19/21 4:47 AM) Alb [3.5-5.2 g/dL] 3.8 g/dL (07/19/21 4:47 AM) Alk Phos [40-130 unit/L] 74 unit/L (07/19/21 4:47 AM) ALT [0-41 unit/L] 10 unit/L (07/19/21 4:47 AM) AST [0-40 unit/L] 10 unit/L (07/19/21 4:47 AM) Bact (u) [NONE-NONE] MODERATE *Abnormal* (07/19/21 4:47 AM) Bili (u) [NEG] NEGATIVE (07/19/21 4:47 AM) BUN [6-23 mg/dL] 67 mg/dL *HI* (07/20/21 7:55 AM) 66 mg/dL *HI* (07/19/21 4:47 AM) Ca [8.4-10.2 mg/dL] 8.8 mg/dL (07/20/21 7:55 AM) 8.3 mg/dL *LOW* (07/19/21 4:47 AM) Cl- [98-107 mmol/L] 110 mmol/L *HI* (07/20/21 7:55 AM) 113 mmol/L *HI* (07/19/21 4:47 AM) HCO3 [22-29 mmol/L] 18 mmol/L *LOW* (07/20/21 7:55 AM) 14 mmol/L *Critical Low* (07/19/21 4:47 AM) Cret [0.70-1.30 mg/dL] 3.56 mg/dL *HI* (07/20/21 7:55 AM) 3.64 mg/dL *HI* (07/19/21 4:47 AM) HbA1c [4.0-6.0 %] 7.9 % *HI* (07/19/21 4:47 AM) Glu [74-109 mg/dL] 97 mg/dL 1 (07/20/21 7:55 AM) 104 mg/dL 2 (07/19/21 4:47 AM) Gluc Meter [70-120 mg/dL] 161 mg/dL *HI* (07/20/21 12:35 PM) 175 mg/dL *HI* (07/19/21 9:35 PM) 133 mg/dL *HI* (07/19/21 4:53 PM) Hct [39-48 %] 31.0 % *LOW* (07/20/21 7:55 AM) 30.5 % *LOW* (07/19/21 4:47 AM) Hgb [13.0-17.0 g/dL] 9.2 g/dL *LOW* (07/20/21 7:55 AM) 9.1 g/dL *LOW* (07/19/21 4:47 AM) K [3.5-5.1 mmol/L] 5.4 mmol/L *HI* (07/20/21 7:55 AM) 5.0 mmol/L (07/19/21 4:47 AM) Ketones [NEG mg/dL] NEGATIVE mg/dL (07/19/21 4:47 AM) Leuk Est [NEG] LARGE *Abnormal* (07/19/21 4:47 AM) MCH [28-33 pg] 27.8 pg *LOW* (07/20/21 7:55 AM) 27.5 pg *LOW* (07/19/21 4:47 AM) MCHC [32-36 g/dL] 29.7 g/dL *LOW* (07/20/21 7:55 AM) 29.8 g/dL *LOW* (07/19/21 4:47 AM) MCV [81-96 fL] 93.7 fL (07/20/21 7:55 AM) 92.1 fL (07/19/21 4:47 AM) Na [136-145 mmol/L] 140 mmol/L (07/20/21 7:55 AM) 143 mmol/L (07/19/21 4:47 AM) Nitrite (u) [NEG] NEGATIVE (07/19/21 4:47 AM) Plts [150-350 K/uL] 182 K/uL (07/20/21 7:55 AM) 208 K/uL (07/19/21 4:47 AM) RBC [4.40-5.60 M/uL] 3.31 M/uL *LOW* (07/20/21 7:55 AM) 3.31 M/uL *LOW* (07/19/21 4:47 AM) T Bili [0.0-1.2 mg/dL] 0.1 mg/dL (07/19/21 4:47 AM) Prot [6.4-8.3 g/dL] 7.7 g/dL (07/19/21 4:47 AM) Appear (u) CLOUDY (07/19/21 4:47 AM) Color (u) YELLOW (07/19/21 4:47 AM) Creat (u) 40.90 mg/dL 3 (07/19/21 4:47 AM) Glu (u) [NEG mg/dL] NEGATIVE mg/dL (07/19/21 4:47 AM) Hgb (u) [NEG] SMALL *Abnormal* (07/19/21 4:47 AM) Na (u) 65 mmol/L 4 (07/19/21 4:47 AM) pH (u) [5.0-8.0 unit] 6.0 unit (07/19/21 4:47 AM) Prot (u) [NEG mg/dL] 100 mg/dL *Abnormal* (07/19/21 4:47 AM) RBC (u) [0-4 /HPF] 5-9 /HPF (07/19/21 4:47 AM) Urobili [0.1-1.0 EU/dL] 0.1-1.0 EU/dL (07/19/21 4:47 AM) SG [1.005-1.030] 1.010 (07/19/21 4:47 AM) WBC (u) [0-4 /HPF] 50+ /HPF (07/19/21 4:47 AM) WBC [4.0-10.4 K/uL] 5.07 K/uL (07/20/21 7:55 AM) 5.26 K/uL (07/19/21 4:47 AM) 1Result Comment: ADA recommendation for FASTING Serum/Plasma Glucose: Normal: 70-100 mg/dL Prediabetes: 100-125 mg/dL Diabetes: 126 mg/dL or higher 2Result Comment: ADA recommendation for FASTING Serum/Plasma Glucose: Normal: 70-100 mg/dL Prediabetes: 100-125 mg/dL Diabetes: 126 mg/dL or higher 3Result Comment: Reference Range for Random Urine Not Established. 4Result Comment: Reference Range for Random Urine Not Established. Microbiology Reports TEST:Urine.Cx STATUS:Auth (Verified) BODY SITE: SOURCE:Urine COLLECTED DATE/TIME:07/19/21 4:47 AM Culture <10 THOUSAND COLONIES/ML UROGENITAL ALL Immunizations Not Given Vaccine Date Status Refusal Reason pneumococcal 23-valent vaccine 07/17/21 Not Given Patient Refuses Social History Social History Type Response Smoking Status Current some day hea vy smoker
--- OUTSIDE RECORDS SUMMARY | 2023-02-15 21:24 | XMS_ITS | Referral Summary ---
Author Name Unknown Organization [facility] er Address [address] [place] [address]- Care Team Providers Care [employer] Name Role Phone No, PCP Primary Care Physician Unavailab le Encounter [facility] [id number] Date(s): 08/14/16 - 08/14/[address] [facility] [address] [place] [address]- Discharge Diagnosis: Chronic hyperglycemia Discharge Diagnosis: Asthma [...]
--- OUTSIDE RECORDS SUMMARY | 2023-02-15 21:24 | XMS_ITS | Referral Summary ---
Author Name Unknown Organization [facility] Address [address] [place], [place] [id number] Encounter [facility] TONIA [id number] Date(s): 08/02/21 - 08/02/[address] [phone] Discharge Disposition: Home or Self Care Attending Physician: MD Cata, Colby Hernandez Problem List Condition Effective Dates Status Health Status Inform ant Bronchitis(Confirmed) Active CHF (congestive heart failure)(Confirmed) Active Type 2 diabetes mellitus wit h peripheral neuropathy(Confirmed) Active Allergies, Adverse Reactions, Alerts Substance Reaction Severity Status Toradol Active Keflex sick Active Medications doxycycline monohydrate 100 mg oral capsule Start: 07/29/21 15:48:00 EDT, 14 each Start Date: 07/29/21 Status: Ordered ibuprofen 600 mg oral tablet Start: 07/29/21 15:48:00 EDT, 30 each Start Date: 07/29/21 Status: Ordered tamsulosin 0.4 mg oral capsule Start: 07/29/21 8:22:00 EDT, 1 cap, PO, Daily, Disp# 30 cap, Note to Pharmacy: [email or web address] leaving today,Pharmacy: [facility] Start Date: 07/29/21 Stop Date: 08/28/21 Status: Ordered Immunizations Not Given Vaccine Date Status Refusal Reason pneumococcal 23-valent vaccine 07/17/21 Not Given Patient Refuses Social History Social History Type Response Smoking Status Current every day he daniele smoker
--- OUTSIDE RECORDS SUMMARY | 2023-02-15 21:24 | XMS_ITS | Referral Summary ---
Author Name Unknown Organization [facility] Address [address] [place] [address] Encounter [facility] [id number] Date(s): 07/15/21 - 07/16/[address] [address] [phone] Encounter Diagnosis Acute kidney injury(Discharge Diagnosis) - 07/16/21 Urinary tract infection(Discharge Diagnosis) - 07/16/21 Homeless(Discharge Diagnosis) - 07/16/21 UTI (urinary tract infection)(Discharge Diagnosis) - 07/16/21 CLARI (acute kidney injury)(Discharge Diagnosis) - 07/16/21 Anemia(Discharge Diagnosis) - 07/16/21 Discharge Disposition: Home or Self Care Attending Physician: MD Felix, Nabeel Dixon Leti Admitting Physician: MD Klein Zackary Vital Signs Most recent to oldest [Reference Range]: 1 Temperature [36.5-37.9 DegC] 37.2 DegC (07/15/21 5:31 PM) Heart Rate 95 bpm (07/15/21 5:31 PM) Respiratory Rate 18 br/min (07/15/21 5:31 PM) Blood Pressure 134/74mmHg (07/15/21 5:31 PM) Cuff Pulse Pressure 60 mmHg (07/15/21 5:31 PM) BP Location # 1 Left Arm (07/15/21 5:31 PM) Problem List Condition Effective Dates Status [...] PO Start Date: 12/19/13 Status: Ordered Results Most recent to oldest [Reference Range]: 1 2 3 Request of Physician Random urine Na Cr K (07/16/21 3:43 AM) Urine protein/creatinine ratio (07/15/21 10:58 PM) PO4 level (07/15/21 10:26 PM) Action Taken NO URINE CUP OR YELL OW TOP TUBE RECEIVED (07/16/21 3:43 AM) Test NOT added because: 1 (07/15/21 10:58 PM) YES (07/15/21 10:26 PM) Estimated CrCl 16.50 mL/min (07/15/21 11:00 PM) Estimated GFR, Black Race [>60 mL/min/1.73 m2] 17 mL/min/1.73 m2 *LOW* (07/15/21 10:24 PM) Estimated GFR, non-Black Race [>60 mL/min/1.73 m2] 14 mL/min/1.73 m2 *LOW* (07/15/21 10:24 PM) MPV [9.0-12.2 fL] 9.9 fL (07/15/21 10:24 PM) Immature Gran% 0.4 % (07/15/21 10:24 PM) Neut% 65.7 % (07/15/21 10:24 PM) Lymph% 16.7 % (07/15/21 10:24 PM) [place]% 11.9 % (07/15/21 10:24 PM) Baso% 0.9 % (07/15/21 10:24 PM) Eos% 4.4 % (07/15/21 10:24 PM) Immat Gran, Abs [0-0.4 K/uL] 0.02 K/uL (07/15/21 10:24 PM) Neut, Abs [2.0-7.7 K/uL] 3.75 K/uL (07/15/21 10:24 PM) Lymph, Abs [1.0-3.4 K/uL] 0.95 K/uL *LOW* (07/15/21 10:24 PM) [place], Abs [0-1.0 K/uL] 0.68 K/uL (07/15/21 10:24 PM) Baso, Abs [0-0.1 K/uL] 0.05 K/uL (07/15/21 10:24 PM) Eos, Abs [0-0.5 K/uL] 0.25 K/uL (07/15/21 10:24 PM) Type of Diff: AUTO (07/15/21: PM) RDW [11.5-14.2 %] 15.8 % *HI* (07/15/21 10: PM) Squamous Epithelial Cells (u) NONE (07/15/21: PM) Anion Gap [5-14 mmol/L] 14 mmol/L (07/15/21 10: PM) Alb [3.5-5.2 g/dL] 4.0 g/dL (07/15/21: PM) Alk Phos [40-130 unit/L] 82 unit/L (07/15/21 10: PM) ALT [0-41 unit/L] 11 unit/L (07/15/21 10: PM) AST [0-40 unit/L] 13 unit/L (07/15/21 10: PM) Bact (u) [NONE-NONE] MODERATE *Abnormal* (07/15/21: PM) Bili (u) [NEG] NEGATIVE (07/15/21: PM) BUN [6-23 mg/dL] 78 mg/dL *HI* (07/15/21:24 PM) Ca [8.4-10.2 mg/dL] 8.9 mg/dL (07/15/21 10:24 PM) Cl- [98-107 mmol/L] 109 mmol/L *HI* (07/15/21: PM) HCO3 [22-29 mmol/L] 15 mmol/L *LOW* (07/15/21 10: PM) Cret [0.70-1.30 mg/dL] 4.20 mg/dL *HI* (07/15/21 10:24 PM) Glu [74-109 mg/dL] 115 mg/dL 2 *HI* (07/15/21:24 PM) Hct [39-48 %] 31.4 % *LOW* (07/15/21: PM) Hgb [13.0-17.0 g/dL] 9.7 g/dL *LOW* (07/15/21: PM) K [3.5-5.1 mmol/L] 4.9 mmol/L (07/15/21 10: PM) Ketones [NEG] NEGATIVE (07/15/21: PM) Lactate [0.5-2.2 mmol/L] 0.6 mmol/L (07/16/21 3:25 AM) Leuk Est [NEG] LARGE *Abnormal* (07/15/21 PM) MCH [28-33 pg] 28.1 pg (07/15/21: PM) MCHC [32-36 g/dL] 30.9 g/dL *LOW* (07/15/21: PM) MCV [81-96 fL] 91.0 fL (07/15/21: PM) Na [136-145 mmol/L] 138 mmol/L (07/15/21 10: PM) Nitrite (u) [NEG] NEGATIVE (07/15/21: PM) PO4 [2.5-4.5 mg/dL] 4.8 mg/dL *HI* (07/15/21: PM) Plts [150-350 K/uL] 210 K/uL (07/15/21: PM) RBC [4.40-5.60 M/uL] 3.45 M/uL *LOW* (07/15/21: PM) T Bili [0.0-1.2 mg/dL] 0.2 mg/dL (07/15/21 10: PM) Prot [6.4-8.3 g/dL] 8.4 g/dL *HI* (07/15/21: PM) Appear (u) CLOUDY (07/15/21: PM) Color (u) YELLOW (07/15/21 10: PM) Glu (u) [NEG] NEGATIVE (07/15/21 PM) Hgb (u) [NEG] SMALL *Abnormal* (07/15/21 10:24 PM) pH (u) [5.0-8.0 unit] 6.0 unit (07/15/21 10:24 PM) Prot (u) [NEG mg/dL] 100 mg/dL *Abnormal* (07/15/21 10:24 PM) RBC (u) [0-4] 10-19 (07/15/21 10:24 PM) Urobili [0.1-1.0] 0.1-1.0 (07/15/21 10:24 PM) SG [1.005-1.030] 1.009 (07/15/21 10:24 PM) WBC (u) [0-4] 50+ (07/15/21 10:24 PM) WBC [4.0-10.4 K/uL] 5.70 K/uL (07/15/21 10:24 PM) 1Result Comment: IMPROPER COLLECTION CONTAINER 2Result Comment: ADA recommendation for FASTING Serum/Plasma Glucose: Normal: 70-100 mg/dL Prediabetes: 100-125 mg/dL Diabetes: 126 mg/dL or higher Microbiology Reports TEST:Urine.Cx STATUS:Auth (Verified) BODY SITE: SOURCE:Urine COLLECTED DATE/TIME:07/15/21 10:57 PM Status FINAL 07/18/2021 ORGANISM:Escherichia coli Immunizations Not Given Vaccine Date Status Refusal Reason pneumococcal 23-valent vaccine 07/17/21 Not Given Patient Refuses Social History Social History Type Response Smoking Status Current every day he daniele smoker
--- OUTSIDE RECORDS SUMMARY | 2023-02-15 21:24 | XMS_ITS | Referral Summary ---
Author Name Unknown Organization [facility] Address [address] [place] [phone] Encounter [facility] [id number] Date(s): 07/16/21 - 07/17/[address] [address] [phone] Encounter Diagnosis CLARI (acute kidney injury)(Discharge Diagnosis) - 07/16/21 UTI (urinary tract infection)(Discharge Diagnosis) - 07/16/21 Lymphedema(Discharge Diagnosis) - 07/16/21 Homelessness(Discharge Diagnosis) - 07/16/21 Discharge Disposition: Home or Self Care Attending Physician: DO Lopez Ashley Lynn Admitting Physician: DO Lopez Ashley Lynn Vital Signs Most recent to oldest [Reference Range]: 1 2 3 Height 170.18 cm (07/16/21 1:58 PM) Patient Weight 79.6 kg (07/17/21 6:17 AM) 81 kg (07/16/21 1:58 PM) Body Mass Index 27.97 kg/m2 (07/16/21 1:58 PM) Temperature [36.5-37.9 DegC] 36.8 DegC (07/17/21 4:57 AM) 36.9 DegC (07/16/21 11:21 PM) 36.8 DegC (07/16/21 6:56 PM) Heart Rate 80 bpm (07/17/21 4:57 AM) 77 bpm (07/16/21 11:21 PM) 82 bpm (07/16/21 6:56 PM) Respiratory Rate 16 br/min (07/17/21 6:33 AM) 18 br/min (07/17/21 4:57 AM) 16 br/min (07/17/21 1:35 AM) Blood Pressure 119/72mmHg (07/17/21 4:57 AM) 133/69mmHg (07/16/21 11:21 PM) 135/65mmHg (07/16/21 6:56 PM) Mean Blood Pressure 84 mmHg (07/16/21 6:56 PM) 85 mmHg (07/16/21 2:00 PM) Cuff Pulse Pressure 47 mmHg (07/17/21 4:57 AM) 64 mmHg (07/16/21 11:21 PM) 70 mmHg (07/16/21 6:56 PM) BP Location # 1 Right Arm (07/17/21 4:57 AM) Right Arm (07/16/21 11:21 PM) Right Arm (07/16/21 6:56 PM) Problem List Condition Effective Dates Status [...] Status: Ordered Results Most recent to oldest [Refer ence Range]: 1 2 Request of Physician BNP (07/16/21 6:01 PM) Action Taken YES (07/16/21 6:01 PM) BNP, NT-Pro [<125 pg/mL] 1464 pg/mL *HI* (07/16/21 3:29 PM) Estimated CrCl 15.45 mL/min (07/16/21 4:24 PM) Estimated GFR, Black Race [>60] REQUEST CREDITED 1 (07/17/21 9:30 AM) Estimated GFR, Black Race [> 60 mL/min/1.73 m2] 16 mL/min/1.73 m2 *LOW* (07/16/21 3:29 PM) Estimated GFR, non-Black Rac e [>60] REQUEST CREDITED 2 (07/17/21 9:30 AM) Estimated GFR, non-Black Rac e [>60 mL/min/1.73 m2] 13 mL/min/1.73 m2 *LOW* (07/16/21 3:29 PM) MPV [9.0-12.2] REQUEST CREDITED 3 (07/17/21 9:30 AM) MPV [9.0-12.2 fL] 10.4 fL (07/16/21 3:29 PM) Immature Gran% REQUEST CREDITED 4 (07/17/21 9:30 AM) Immature Gran% 0.5 % (07/16/21 3:29 PM) Neut% REQUEST CREDITED 5 (07/17/21 9:30 AM) Neut% 72.8 % (07/16/21 3:29 PM) Lymph% REQUEST CREDITED 6 (07/17/21 9:30 AM) Lymph% 13.9 % (07/16/21 3:29 PM) [place]% REQUEST CREDITED 7 (07/17/21 9:30 AM) [place]% 9.0 % (07/16/21 3:29 PM) Baso% REQUEST CREDITED 8 (07/17/21 9:30 AM) Baso% 1.0 % (07/16/21 3:29 PM) Eos% REQUEST CREDITED 9 (07/17/21 9:30 AM) Eos% 2.8 % (07/16/21 3:29 PM) Immat Gran, Abs [0-0.4] REQUEST CREDITED 10 (07/17/21 9:30 AM) Immat Gran, Abs [0-0.4 K/uL] 0.03 K/uL (07/16/21 3:29 PM) Neut, Abs [2.0-7.7] REQUEST CREDITED 11 (07/17/21 9:30 AM) Neut, Abs [2.0-7.7 K/uL] 4.18 K/uL (07/16/21 3:29 PM) Lymph, Abs [1.0-3.4] REQUEST CREDITED 12 (07/17/21 9:30 AM) Lymph, Abs [1.0-3.4 K/uL] 0.80 K/uL *LOW* (07/16/21 3:29 PM) [place], Abs [0-1.0] REQUEST CREDITED 13 (07/17/21 9:30 AM) [place], Abs [0-1.0 K/uL] 0.52 K/uL (07/16/21 3:29 PM) Baso, Abs [0-0.1] REQUEST CREDITED 14 (07/17/21 9:30 AM) Baso, Abs [0-0.1 K/uL] 0.06 K/uL (07/16/21 3:29 PM) Eos, Abs [0-0.5] REQUEST CREDITED 15 (07/17/21 9:30 AM) Eos, Abs [0-0.5 K/uL] 0.16 K/uL (07/16/21 3:29 PM) Type of Diff: REQUEST CREDITED 16 (07/17/21 9:30 AM) AUTO (07/16/21 3:29 PM) RDW [11.5-14.2] REQUEST CREDITED 17 (07/17/21 9:30 AM) RDW [11.5-14.2 %] 15.6 % *HI* (07/16/21 3:29 PM) Urea Nitro (u) 342 mg/dL 18 (07/16/21 9:58 PM) Anion Gap [5-14] REQUEST CREDITED 19 (07/17/21 9:30 AM) Anion Gap [5-14 mmol/L] 15 mmol/L *HI* (07/16/21 3:29 PM) Alb [3.5-5.2] REQUEST CREDITED 20 (07/17/21 9:30 AM) Alk Phos [40-130] REQUEST CREDITED 21 (07/17/21 9:30 AM) ALT [0-41] REQUEST CREDITED 22 (07/17/21 9:30 AM) Amphetamines(u) NONE DETECTED (07/16/21 9:58 PM) AST [0-40] REQUEST CREDITED 23 (07/17/21 9:30 AM) Barbiturates(u) NONE DETECTED (07/16/21 9:58 PM) Benzodiazepines(u) NONE DETECTED (07/16/21 9:58 PM) BUN [6-23] REQUEST CREDITED 24 (07/17/21 9:30 AM) BUN [6-23 mg/dL] 78 mg/dL *HI* (07/16/21 3:29 PM) Ca [8.4-10.2] REQUEST CREDITED 25 (07/17/21 9:30 AM) Ca [8.4-10.2 mg/dL] 8.7 mg/dL (07/16/21 3:29 PM) Cl- [98-107] REQUEST CREDITED 26 (07/17/21 9:30 AM) Cl- [98-107 mmol/L] 109 mmol/L *HI* (07/16/21 3:29 PM) HCO3 [22-29] REQUEST CREDITED 27 (07/17/21 9:30 AM) HCO3 [22-29 mmol/L] 15 mmol/L *LOW* (07/16/21 3:29 PM) Cocaine(u) NONE DETECTED (07/16/21 9:58 PM) Cret [0.70-1.30] REQUEST CREDITED 28 (07/17/21 9:30 AM) Cret [0.70-1.30 mg/dL] 4.34 mg/dL *HI* (07/16/21 3:29 PM) Glu [74-109] REQUEST CREDITED 29 (07/17/21 9:30 AM) Glu [74-109 mg/dL] 178 mg/dL 30 *HI* (07/16/21 3:29 PM) Hct [39-48] REQUEST CREDITED 31 (07/17/21 9:30 AM) Hct [39-48 %] 31.0 % *LOW* (07/16/21 3:29 PM) Hgb [13.0-17.0] REQUEST CREDITED 32 (07/17/21 9:30 AM) Hgb [13.0-17.0 g/dL] 9.4 g/dL *LOW* (07/16/21 3:29 PM) K [3.5-5.1] REQUEST CREDITED 33 (07/17/21 9:30 AM) K [3.5-5.1 mmol/L] 4.8 mmol/L (07/16/21 3:29 PM) Marijuana(u) NONE DETECTED (07/16/21 9:58 PM) MCH [28-33] REQUEST CREDITED 34 (07/17/21 9:30 AM) MCH [28-33 pg] 27.7 pg *LOW* (07/16/21 3:29 PM) MCHC [32-36] REQUEST CREDITED 35 (07/17/21 9:30 AM) MCHC [32-36 g/dL] 30.3 g/dL *LOW* (07/16/21 3:29 PM) MCV [81-96] REQUEST CREDITED 36 (07/17/21 9:30 AM) MCV [81-96 fL] 91.4 fL (07/16/21 3:29 PM) Na [136-145] REQUEST CREDITED 37 (07/17/21 9:30 AM) Na [136-145 mmol/L] 139 mmol/L (07/16/21 3:29 PM) Opiates(u) NONE DETECTED (07/16/21 9:58 PM) Plts [150-350] REQUEST CREDITED 38 (07/17/21 9:30 AM) Plts [150-350 K/uL] 205 K/uL (07/16/21 3:29 PM) RBC [4.40-5.60] REQUEST CREDITED 39 (07/17/21 9:30 AM) RBC [4.40-5.60 M/uL] 3.39 M/uL *LOW* (07/16/21 3:29 PM) T Bili [0.0-1.2] REQUEST CREDITED 40 (07/17/21 9:30 AM) Prot [6.4-8.3] REQUEST CREDITED 41 (07/17/21 9:30 AM) Creat (u) 39.46 mg/dL 42 (07/16/21 9:58 PM) Na (u) 64 mmol/L 43 (07/16/21 9:58 PM) WBC [4.0-10.4] REQUEST CREDITED 44 (07/17/21 9:30 AM) WBC [4.0-10.4 K/uL] 5.75 K/uL (07/16/21 3:29 PM) COVID-19 Coronavirus PCR [COV19N] COVID 19 virus not detected 45 (07/16/21 3:29 PM) 1Result Comment: NO SAMPLE RECEIVED 2Result Comment: NO SAMPLE RECEIVED 3Result Comment: DUPLICATE REQUEST 4Result Comment: DUPLICATE REQUEST 5Result Comment: DUPLICATE REQUEST 6Result Comment: DUPLICATE REQUEST 7Result Comment: DUPLICATE REQUEST 8Result Comment: DUPLICATE REQUEST 9Result Comment: DUPLICATE REQUEST 10Result Comment: DUPLICATE REQUEST 11Result Comment: DUPLICATE REQUEST 12Result Comment: DUPLICATE REQUEST 13Result Comment: DUPLICATE REQUEST 14Result Comment: DUPLICATE REQUEST 15Result Comment: DUPLICATE REQUEST 16Result Comment: DUPLICATE REQUEST 17Result Comment: DUPLICATE REQUEST 18Result Comment: Reference Range for Random Urine Not Established. 19Result Comment: NO SAMPLE RECEIVED 20Result Comment: NO SAMPLE RECEIVED 21Result Comment: NO SAMPLE RECEIVED 22Result Comment: NO SAMPLE RECEIVED 23Result Comment: NO SAMPLE RECEIVED 24Result Comment: NO SAMPLE RECEIVED 25Result Comment: NO SAMPLE RECEIVED 26Result Comment: NO SAMPLE RECEIVED 27Result Comment: NO SAMPLE RECEIVED 28Result Comment: NO SAMPLE RECEIVED 29Result Comment: NO SAMPLE RECEIVED 30Result Comment: ADA recommendation for FASTING Serum/Plasma Glucose: Normal: 70-100 mg/dL Prediabetes: 100-125 mg/dL Diabetes: 126 mg/dL or higher 31Result Comment: DUPLICATE REQUEST 32Result Comment: DUPLICATE REQUEST 33Result Comment: NO SAMPLE RECEIVED 34Result Comment: DUPLICATE REQUEST 35Result Comment: DUPLICATE REQUEST 36Result Comment: DUPLICATE REQUEST 37Result Comment: NO SAMPLE RECEIVED 38Result Comment: DUPLICATE REQUEST 39Result Comment: DUPLICATE REQUEST 40Result Comment: NO SAMPLE RECEIVED 41Result Comment: NO SAMPLE RECEIVED 42Result Comment: Reference Range for Random Urine Not Established. 43Result Comment: Reference Range for Random Urine Not Established. 44Result Comment: DUPLICATE REQUEST 45Result Comment: Test results reported to [place] Dept of Health This assay has been granted an Emergency Use Authorization (EUA) by the [place] Food and drug Administration. The performance of the assay (NeuMoDX) has been verified by the [facility] Immunizations Not Given Vaccine Date Status Refusal Reason pneumococcal 23-valent vaccine 07/17/21 Not Given Patient Refuses Social History Social History Type Response Smoking Status Current every day he daniele smoker
--- OUTSIDE RECORDS SUMMARY | 2023-02-15 21:24 | XMS_ITS | Referral Summary ---
Author Name Unknown Organization [facility] Address [address] [facility] SHANNON TREVIZO [id number] [id number] Date(s): [facility] - 07/29/[facility] [address] [facility] [place] TREVIZO [phone] Encounter Diagnosis Urinary retention(Discharge Diagnosis) - 07/29/21 Uropathy, obstructive(Discharge Diagnosis) - 07/29/21 Diabetes(Discharge Diagnosis) - 07/29/21 CHF, chronic(Discharge Diagnosis) - 07/29/21 Discharge Disposition: Home or Self Care Attending Physician: MD Gomez Elizabeth B Vital Signs Most recent to oldest [Reference Range]: 1 2 Height 170.18 cm (07/29/21 3:45 PM) 167.64 cm (07/29/21 3:45 PM) Patient Weight 98.1 kg (07/29/21 3:45 PM) 81.6 kg (07/29/21 3:45 PM) Body Mass Index 33.87 kg/m2 (07/29/21 3:45 PM) 29.04 kg/m2 (07/29/21 3:45 PM) Temperature [36.5-37.9 DegC] 36.6 DegC (07/29/21 8:54 PM) 36.5 DegC (07/29/21 3:45 PM) Heart Rate 63 bpm (07/29/21 8:54 PM) 90 bpm (07/29/21 3:45 PM) Respiratory Rate 18 br/min (07/29/21 8:54 PM) 20 br/min (07/29/21 3:45 PM) Blood Pressure 110/77mmHg (07/29/21 8:54 PM) 155/63mmHg (07/29/21 3:45 PM) Mean Blood Pressure 84 mmHg (07/29/21 8:54 PM) 91 mmHg (07/29/21 3:45 PM) Cuff Pulse Pressure 33 mmHg (07/29/21 8:54 PM) 92 mmHg (07/29/21 3:45 PM) BP Location # 1 Other: right forearm 1 (07/29/21 8:54 PM) Right Arm (07/29/21 3:45 PM) 1Result Comment: per pt request Problem List Condition Effective Dates Status Health [...] cap, Note to Pharmacy: [email or web address] leaving today,Pharmacy: [facility] [place] Start Date: 07/29/21 Stop Date: 08/28/21 Status: Ordered Results Most recent to oldest [Reference Range]: 1 Request of Physician ua (07/29/21 8:15 PM) Action Taken Test NOT added becau se: 1 (07/29/21 8:15 PM) 1Result Comment: NO URINE RECEIVED Immunizations Not Given Vaccine Date Status Refusal Reason pneumococcal 23-valent vaccine 07/17/21 Not Given Patient Refuses Social History Social History Type Response Smoking Status Current every day he daniele smoker
--- OUTSIDE RECORDS SUMMARY | 2023-02-15 21:24 | XMS_ITS | Continuity of Care Document ---
Author Name Unknown Organization [facility] Address [address] [place] [address] Encounter 11/10/21 - 11/10/21 [facility] [address] [place] [address] Encounter Diagnosis UTI (urinary tract infection)(Discharge Diagnosis) - 11/10/21 Discharge Disposition: Home or Self Care Attending Physician: MD Ayala Katie E Admitting Physician: MD Ayala Katie E Allergies, Adverse Reactions, Alerts Substance Reaction Severity Status Keflex Active Assessment and Plan Extracted from: Title:ED Note Author:MD Ayala Katie E Bjorn e:11/10/21 1.??UTI (urinary tract infec tion)??(N39.0) Diagnostic Tests Pending * Urine Culture 11/10/21 Medications Flomax 0.4 mg oral capsule 0.4 mg = 1 cap, Oral, Qday, # 30 cap, 0 Refill(s) Start Date: 09/10/21 Status: Ordered levoFLOXacin (Eqv Levaquin) 750 mg oral tablet 750 mg = 1 tab, Oral, Qday, X 5 days, # 5 tab, 0 Refill(s), 11/15/21 2:43:00 EST Start Date: 11/10/21 Stop Date: 11/15/21 Status: Ordered Mental Status 11/10/21 Eye Opening Response Americo Spontaneous ly Best Verbal Response Americo Oriented Best Motor Response Americo Obeys comman ds Martin Coma Score 15 Problem List Condition Effective Dates Status Health Status Inform ant Arthritis(Confirmed) Active BPH - benign prostatic hyperplasia(Confirmed) Active Chronic kidney disease(Confirmed) Active DM - Diabetes mellitus(Confirmed) Active Peripheral edema(Confirmed) Active Peripheral edema(Confirmed) Active Diagnosis Diagnosis Type Effective Dates Health Status Cl inical Service Informant UTI (urinary tract infection) Discharge Diagnosis 11/10/21 Results Laboratory List Name Date Urinalysis w Reflex Culture if Indicated (UA w Reflex Culture if Indicated) 11/10/21 .UA Culture Indicated 11/10/21 Most recent to oldest [Reference Range]: 1 2 Pharmacy Estimated Creatinine Clearance 19.31 mL/min (11/10/21 1:40 AM) 19.71 mL/min (11/10/21 1:34 AM) Urine Color [Yellow] Colorless *ABN* (11/10/21 2:04 AM) Urine WBC [<=5 /HPF] 18 /HPF *HI* (11/10/21 2:04 AM) Urine Urobilinogen [Negative mg/dL] Nega tive mg/dL (11/10/21 2:04 AM) Urine Bilirubin [Negative] Negative (11/10/21 2:04 AM) Urine Ketones [Negative mg/dL] Negative mg/dL (11/10/21 2:04 AM) Urine RBC [<=5 /HPF] 2 /HPF (11/10/21 2:04 AM) Urine Leukocyte Esterase [Negative] Larg e *ABN* (11/10/21 2:04 AM) Urine Nitrite [Negative] Negative (11/10/21 2:04 AM) Urine Glucose [Negative mg/dL] 150 mg/dL *ABN* (11/10/21 2:04 AM) Urine Bacteria [None Seen /HPF] Trace /H PF *ABN* (11/10/21 2:04 AM) Urine Protein [Negative mg/dL] 20 mg/dL *ABN* (11/10/21 2:04 AM) Urine Blood [Negative] 1+ *ABN* (11/10/21 2:04 AM) Urine Mucous [None Seen /HPF] Trace /HPF *ABN* (11/10/21 2:04 AM) Urine Specific [place] [1.003-1.040] 1.0 11 (11/10/21 2:04 AM) Urine Squamous Epithelial Cells 0 /HPF *NA* (11/10/21 2:04 AM) Urine pH [4.5-7.5] 6.0 (11/10/21 2:04 AM) Urine Appearance [Clear] Clear (11/10/21 2:04 AM) Urine Microscopic Indicated? [Not Indicated] Indicated *ABN* (11/10/21 2:04 AM) Cx Indicated Urine Culture Indica rakesh *NA* (11/10/21 2:04 AM) Vital Signs Most recent to oldest [Reference Range]: 1 2 Blood Pressure [91-140/90 mmHg] 155/66mm Hg *HI* (11/10/21 1:30 AM) 160/72mmHg *HI* (11/10/21 1:25 AM) Temperature Oral [36.1-37.8 Deg C] 36.5 Deg C (11/10/21 1:25 AM) Heart Rate Monitored [50-100 bpm] 86 bpm (11/10/21 1:30 AM) 88 bpm (11/10/21 1:25 AM) Respiratory Rate [12-20 br/min] 20 br/mi n (11/10/21 1:25 AM) Mean Arterial Pressure, Cuff [65-140 mmH g] 101 mmHg (11/10/21 1:30 AM) Social History Social History Type Response Tobacco Smoking tobacco use: 10+ cigarettes(1/2 pack or more)/day in last 30 days. Type: Cigarettes. Sex
--- OUTSIDE RECORDS SUMMARY | 2023-02-15 21:24 | XMS_ITS | Referral Summary ---
Author Name Unknown Organization [facility] Address [address] [place] [address]- Care Team Providers Care Cabinet Installer Name Role Phone No, PCP Primary Care Physician Unavailab le Encounter [facility] [id number] Date(s): 08/14/16 - 08/14/16 [facility] [address] [place] [address]- Discharge Diagnosis: Chronic hyperglycemia Discharge Diagnosis: Asthma [...]
--- OUTSIDE RECORDS SUMMARY | 2023-02-15 21:24 | XMS_ITS | Continuity of Care Document ---
Author Name Unknown Organization [facility] Address [address] [place] [address] Encounter 09/12/21 - 09/12/21 [facility] [address] [place] [address] [place] Discharge Disposition: Left Against Medical Advice Attending Physician: MD Dontae, Stoney Admitting Physician: MD Dontae, Stoney Allergies, Adverse Reactions, Alerts Substance Reaction Severity Status Keflex Active Medications Flomax 0.4 mg oral capsule 0.4 mg = 1 cap, Oral, Qday, # 30 cap, 0 Refill(s) Start Date: 09/10/21 Status: Ordered Problem List Condition Effective Dates Status Health Status Inform ant Arthritis(Confirmed) Active BPH - benign prostatic hyperplasia(Confirmed) Active Chronic kidney disease(Confirmed) Active DM - Diabetes mellitus(Confirmed) Active Peripheral edema(Confirmed) Active Social History Social History Type Response Tobacco Smoking tobacco use: 10+ cigarettes(1/2 pack or more)/day in last 30 days. Sex
--- OUTSIDE RECORDS SUMMARY | 2023-02-15 21:24 | XMS_ITS | Continuity of Care Document ---
Author Name Unknown Organization [facility] Address [address] [place] [address] Encounter 11/24/21 - 11/25/21 [facility] [address] [place] [address] [place] Encounter Diagnosis Musculoskeletal pain(Discharge Diagnosis) - 11/25/21 Leg swelling(Discharge Diagnosis) - 11/25/21 Chronic renal disease(Discharge Diagnosis) - 11/25/21 Urinary retention(Discharge Diagnosis) - 11/25/21 Anemia(Discharge Diagnosis) - 11/25/21 Hypocalcemia(Discharge Diagnosis) - 11/25/21 Discharge Disposition: Home or Self Care Attending Physician: DO Hubbard Taras M Admitting Physician: DO Hubbard Taras M Allergies, Adverse Reactions, Alerts Substance Reaction Severity Status Keflex Active Assessment and Plan Extracted from: Title:ED Note Author:DO Hubbard Taras M Da te:11/25/21 1.??Musculoskeletal pain??(M 79.18) 2.??Leg swelling??(M79.89) 3.??Chronic renal disease??(N18.9) 4.??Urinary retention??(R33.9) 5.??Anemia??(D64.9) 6.??Hypocalcemia??(E83.51) Medications Flomax 0.4 mg oral capsule 0.4 mg = 1 cap, Oral, Qday, # 30 cap, 0 Refill(s) Start Date: 09/10/21 Status: Ordered Mental Status 11/24/21 Eye Opening Response Adams Spontaneous ly Best Verbal Response Adams Oriented Best Motor Response Adams Obeys comman ds Adams Coma Score 15 Problem List Condition Effective Dates Status Health Status Inform ant Arthritis(Confirmed) Active BPH - benign prostatic hyperplasia(Confirmed) Active Chronic kidney disease(Confirmed) Active DM - Diabetes mellitus(Confirmed) Active Peripheral edema(Confirmed) Active Peripheral edema(Confirmed) Active Diagnosis Diagnosis Type Effective Dates Health Status Clinical Service Informant Musculoskeletal pain Discharge Diagnosis 11/25/21 Leg swelling Discharge Diagnosis 11/25/21 Chronic renal disease Discharge Diagnosis 11/25/21 Urinary retention Discharge Diagnosis 11/25/21 Anemia Discharge Diagnosis 11/25/21 Hypocalcemia Discharge Diagnosis 11/25/21 Procedures Procedure Date Related Diagnosis Body Site Status ROUTINE VENIPUNCTURE 11/25/21 Comp leted Results Laboratory List Name Date .Automated Diff 11/25/21 CBC w/ Diff 11/25/21 Comprehensive Metabolic Panel (CMP) 11/25 Most recent to oldest [Reference Range]: 1 2 3 Pharmacy Estimated Creatinin e Clearance 24.02 mL/min (11/25/21 6:44 AM) 24.02 mL/min (11/25/21 3:55 AM) 19.14 mL/min (11/24/21 9:44 PM) RBC [4.70-6.10 x10^6/mcL] 3.43 x10^6/mcL *LOW* (11/25/21 3:30 AM) Neutrophil % [40.0-64.0 %] 57.8 % (11/25/21 3:30 AM) Lymphocyte % [22.0-44.0 %] 24.6 % (11/25/21 3:30 AM) Monocyte % [4.0-14.0 %] 9.3 % (11/25/21 3:30 AM) Basophil % [0.0-2.0 %] 1.3 % (11/25/21 3:30 AM) BUN [7-17 mg/dL] 56 mg/dL *HI* (11/25/21 3:30 AM) Glucose Level [65-105 mg/dL] 130 mg/dL *HI* (11/25/21 3:30 AM) Potassium Level [3.5-5.0 mmol/L] 5.2 mmol/L *HI* (11/25/21 3:30 AM) Basophil Absolute [0.0-0.2 x10^3/mcL] 0.1 x10^3/mcL (11/25/21 3:30 AM) MCV [80-95 fL] 91 fL (11/25/21 3:30 AM) AST [17-59 unit/L] 19 unit/L (11/25/21 3:30 AM) ALT [0-49 unit/L] 18 unit/L (11/25/21 3:30 AM) MCHC [32.0-36.0 g/dL] 31.9 g/dL *LOW* (11/25/21 3:30 AM) Sodium Level [135-145 mmol/L] 136 mmol/L (11/25/21 3:30 AM) Lymphocyte Absolute [1.1-4.8 x10^3/mcL] 1.4 x10^3/mcL (11/25/21 3:30 AM) Hematocrit [42.0-52.0 %] 31.3 % *LOW* (11/25/21 3:30 AM) Calcium Level [8.4-10.2 mg/dL] 7.6 mg/dL *LOW* (11/25/21 3:30 AM) Monocyte Absolute [0.2-1.5 x10^3/mcL] 0.5 x10^3/mcL (11/25/21 3:30 AM) Albumin Level [3.5-5.0 g/dL] 3.9 g/dL (11/25/21 3:30 AM) Protein Total [6.3-8.2 g/dL] 7.1 g/dL (11/25/21 3:30 AM) MCH [27.0-32.0 pg] 29.2 pg (11/25/21 3:30 AM) Neutrophil Absolute [1.9-7.6 x10^3/mcL] 3.2 x10^3/mcL (11/25/21 3:30 AM) Bilirubin, Total [0.1-1.2 mg/dL] 0.3 mg/dL (11/25/21 3:30 AM) Hgb [14.0-18.0 g/dL] 10.0 g/dL *LOW* (11/25/21 3:30 AM) Alkaline Phosphatase [50-250 unit/L] 81 unit/L (11/25/21 3:30 AM) WBC Count [4.80-10.80 x10^3/mcL] 5.48 x10^3/mcL (11/25/21 3:30 AM) Platelets [150-450 x10^3/mcL] 134 x10^3/ mcL *LOW* (11/25/21 3:30 AM) Eosinophil Absolute [0.0-0.5 x10^3/mcL] 0.4 x10^3/mcL (11/25/21 3:30 AM) RDW [11.5-14.5 %] 15.0 % *HI* (11/25/21 3:30 AM) eGFR Non- 21 mL/min/1.73 m2 *NA* (11/25/21 3:30 AM) eGFR 24 mL/min/1.73 m2 *NA* (11/25/21 3:30 AM) Chloride Level [98-109 mmol/L] 108 mmol/L (11/25/21 3:30 AM) Immature Granulocyte % [0.1-0.7 %] 0.2 % (11/25/21 3:30 AM) NRBC % [<=0.0 %] 0.0 % (11/25/21 3:30 AM) Immature Granulocyte Absolut e [0.0-0.1 x10^3/mcL] 0.0 x10^3/mcL (11/25/21 3:30 AM) NRBC Absolute [<=0.0 x10^3/mcL] 0.0 x10^3/mcL (11/25/21 3:30 AM) Calculated Osmolality [261-280 mOsm/kg] 299 mOsm/kg *HI* (11/25/21 3:30 AM) BUN/Creatinine Ratio 19.6 ratio *NA* (11/25/21 3:30 AM) CO2 Level [27-32 mmol/L] 20 mmol/L *LOW* (11/25/21 3:30 AM) Creatinine Level [0.66-1.25 mg/dL] 2.85 mg/dL *HI* (11/25/21 3:30 AM) Anion Gap [3-11] 8 (11/25/21 3:30 AM) Eosinophil % [0.0-5.0 %] 6.8 % *HI* (11/25/21 3:30 AM) Vital Signs Most recent to oldest [Reference Range]: 1 2 3 Blood Pressure [91-140/90 mmHg] 136/69mmHg (11/25/21 6:00 AM) 136/69mmHg (11/25/21 5:00 AM) 127/59mmHg (11/25/21 2:58 AM) Temperature Oral [36.1-37.8 Deg C] 36.8 Deg C (11/25/21 2:58 AM) 36.6 Deg C (11/24/21 9:39 PM) Heart Rate Monitored [50-100 bpm] 85 bpm (11/25/21 6:00 AM) 97 bpm (11/25/21 5:00 AM) 80 bpm (11/25/21 2:58 AM) Respiratory Rate [12-20 br/min] 18 br/min (11/25/21 6:00 AM) 18 br/min (11/25/21 5:00 AM) 18 br/min (11/25/21 2:58 AM) Mean Arterial Pressure, Cuff [65-140 mmHg] 97 mmHg (11/25/21 6:00 AM) Social History Social History Type Response Tobacco Smoking tobacco use: 10+ cigarettes(1/2 pack or more)/day in last 30 days. Type: Cigarettes. Sex
--- OUTSIDE RECORDS SUMMARY | 2023-02-15 21:24 | XMS_ITS | Referral Summary ---
Author Name Unknown Organization [facility] Address [address] [facility] [place] [id number] Encounter [facility] [id number] Date(s): 08/05/21 - 08/06/[address] [id number] [phone] Encounter Diagnosis Indwelling Oliveros catheter present(Discharge Diagnosis) - 08/05/21 Discharge Disposition: Home or Self Care Attending Physician: Todd PRICE DO, Francis Joseph Vital Signs Most recent to oldest [Reference Range]: 1 Height 170.18 cm (08/05/21 8:26 PM) Patient Weight 81 kg (08/05/21 8:26 PM) Body Mass Index 27.97 kg/m2 (08/05/21 8:26 PM) Temperature [36.5-37.9 DegC] 36.1 DegC *LOW* (08/05/21 8:26 PM) Heart Rate 85 bpm (08/05/21 8:26 PM) Respiratory Rate 18 br/min (08/05/21 8:26 PM) Blood Pressure 144/75mmHg (08/05/21 8:26 PM) Mean Blood Pressure 94 mmHg (08/05/21 8:26 PM) Cuff Pulse Pressure 69 mmHg (08/05/21 8:26 PM) BP Location # 1 Right Arm (08/05/21 8:26 PM) Problem List Condition Effective Dates Status [...] cap, Note to Pharmacy: [email or web address] leaving today,Pharmacy: [facility] [place] Start Date: 07/29/21 Stop Date: 08/28/21 Status: Ordered Immunizations Not Given Vaccine Date Status Refusal Reason pneumococcal 23-valent vaccine 07/17/21 Not Given Patient Refuses Social History Social History Type Response Smoking Status Current every day he daniele smoker
--- OUTSIDE RECORDS SUMMARY | 2023-02-15 21:24 | XMS_ITS | Referral Summary ---
Author Name Unknown Organization [facility] Address [address] [facility] [place], [place] [id number] Encounter [facility] VICTOR HUGOLATANYAR [id number] Date(s): 08/01/21 - 08/02/21 [facility] [address] [facility] [place], [place] [id number] [phone] Discharge Disposition: Home or Self Care Attending Physician: MD Tomlin Ravindra Vital Signs Most recent to oldest [Reference Range]: 1 Height 170.18 cm (08/01/21 11:23 PM) Patient Weight 79.8 kg (08/01/21 11:23 PM) Body Mass Index 27.55 kg/m2 (08/01/21 11:23 PM) Temperature [36.5-37.9 DegC] 36.2 DegC *LOW* (08/01/21 11:22 PM) Heart Rate 54 bpm (08/01/21 11:22 PM) Respiratory Rate 20 br/min (08/01/21 11:22 PM) Blood Pressure 123/104mmHg (08/01/21 11:22 PM) Mean Blood Pressure 111 mmHg (08/01/21 11:22 PM) Cuff Pulse Pressure 19 mmHg (08/01/21 11:22 PM) BP Location # 1 Right Arm (08/01/21 11:22 PM) Problem List Condition Effective Dates Status [...] cap, Note to Pharmacy: [email or web address] leaving today,Pharmacy: [facility] [place] Start Date: 07/29/21 Stop Date: 08/28/21 Status: Ordered Immunizations Not Given Vaccine Date Status Refusal Reason pneumococcal 23-valent vaccine 07/17/21 Not Given Patient Refuses Social History Social History Type Response Smoking Status Current every day he daniele smoker
== END 2023-02-15 21:51 | disposition left against medical advice (07) ==
PROVIDERS: Emergency Provider Physician Assistant
DX: R60.9 Edema, unspecified (principal); Z53.29 Procedure and treatment not carried out because of patient's decision for other reasons
CPT/HCPCS: 93005; 99282; 93010

== ENCOUNTER 2023-02-16 00:30 | Emergency (ER) | payer MEDICARE, OTHER, SELFPAY ==
[2023-02-16 00:29] VITALS: BP 161/82; PULSE 88; RESP 16; TEMP 36.6; O2SAT 100
--- NOTE | 2023-02-16 00:46 | W.ED.GENAD ---
Discharge Plan Disposition Patient Disposition: Home Condition: Stable Discharge Details Clinical Impression: Foot pain, bilateral Primary Care Provider: None,None ED Provider: Miguel Dumont Home Meds and New Rx's Prescriptions: No Action No Known Home Meds Discharge Instructions Instructions: Leg Pain (ED) Discharge Data Discharge Date/Time-TO BE ENTERED AT DEPARTURE: 02/16/23 08:18 Discharge Physician: Miguel Dumont Medical Decision Making Patient to return to the emergency department after he was discharged about an hour ago stating that he was homeless when he was little depressed but now he feels better there is no reason for additional work-up and he will be discharged home soon social service was notified and will get the patient a group home for the night HPI General Date/Time Provider Initiated Documentation: 02/16/23 00:46. HPI Narrative: Patient presented here for anxiety and states that he was out in the streets feels scared denies any suicidal ideation. Related Data Home Medications Medication Instructions Recorded Confirmed Unknown [No Known Home Meds] 06/25/21 06/25/21 Allergies Allergy/AdvReac Type Severity Reaction Status Date / Time cephalexin [From Keflex] Allergy Nausea Unverified 02/16/23 00:42 General Stated Complaint: GenMedical SAURAV: 3 Review of Systems All systems reviewed & are unremarkable except as noted in HPI and below Constitutional Constitutional: Reports as per HPI and Reports system reviewed and no additional complaints, except as documented Psychiatric Psychiatric: Reports difficulty concentrating PFSH All Active Problems Foot pain, bilateral (Acute) Peripheral edema (Acute) Social History Smoking/Tobacco Use Status: Current every day Tobacco Type: cigarettes Smoking risk assessment performed?: Yes Alcohol Intake: former Substance use type: does not use Do you feel safe at home: Yes Do you feel safe in your relationship?: Yes Additional Social history: pt reports he is homeless Exam Const General: cooperative, healthy appearing and comfortable [facility] Head: normal to inspection, no palpable skull fracture and normocephalic Eyes General: appearance normal, both eyes and all related structures Neck Neck: normal visual inspection, full ROM and no lymphadenopathy Chest Chest: normal inspection of the chest and normal palpation of entire chest wall Resp Effort & Inspection: normal respiratory effort and able to speak in complete sentences Cardio Jugular venous pressure: no JVD Palpation: normal PMI Rate: regular rate Rhythm: regular rhythm GI Inspection: normal to inspection Back/Spine/Pelvis Back: no CVA tenderness Skin General skin exam: no rashes or lesions noted Neuro General: patient alert, patient awake and patient oriented x3 Course Vital Signs Vital signs: Vital Signs Temperature 36.6 C 02/16/23 00:29 Pulse 88 02/16/23 00:29 Respiratory Rate 16 02/16/23 00:29 Blood Pressure 161/82 H 02/16/23 00:29 Pulse Oximetry 100 02/16/23 00:29 Temperature 36.6 C 02/16/23 00:29 Temperature Source Oral 02/16/23 00:29 Pulse 88 02/16/23 00:29 Respiratory Rate 16 02/16/23 00:29 Respiratory Effort Normal 02/16/23 00:42 Blood Pressure 161/82 H 02/16/23 00:29 Blood Pressure Position Sitting 02/16/23 00:29 Pulse Oximetry 100 02/16/23 00:29 Oxygen Delivery Method Room Air 02/16/23 00:29 Oxygen Flow Rate 0 02/16/23 00:29
--- OUTSIDE RECORDS SUMMARY | 2023-02-16 01:10 | XMS_ITS | CCD ---
Author Name Unknown Address [address] [place] [phone] Organization Unknown Address [address] [place] [phone] Care Team Providers Care Offline Cutter Name Role Phone FELICIA SPARKS Attending Physician [phone] ALEC HARMON Er Physician 4 [phone] ERNESTO Mena Registered Nurse [phone] CARY Mena Registered Nurse [phone] Vital Signs Vital Sign Value Unit Date/Time [...] Allergy Code Allergy Type Reaction Status KEFLEX 287115 Drug allergy Active Procedures Unknown or Not Available. History of Immunizations Unknown or Not Available. Problems Problem Code Start Date Resolved Date Status NIDDM 30529201 Active Chronic kidney disease 317441321 Ac tive Homeless 80036150 02/12/2023 Active Results Unknown or Not Available. Active Medications Unknown or Not Available. Medications Administered During Visit Unknown or Not Available. Encounters Encounter Diagnosis Diagnosis Code Start Date Localized edema 821898658 02/12/2023 Social History Smoking Status Code Start Date End Date Current every day smoker 533022654 Patient Decision Aids Unknown or Not Available. Discharge Instructions You were admitted to [facility] on 02/12/2023 18:01 with a principal diagnosis of Localized edema You were discharged from [facility] on 02/12/2023 22:18 Should you [...]
--- OUTSIDE RECORDS SUMMARY | 2023-02-16 01:12 | XMS_ITS | CCD ---
Author Name Unknown Address [address] [place] [phone] Organization Unknown Address [address] [place] [phone] Care Team Providers Care Supervisor Grading Name Role Phone GONZÁLEZ GRAHAM MD Attending Physician [phone] GISEL SAAVEDRA Er Physician 0 [phone] Vital Signs Unknown or Not Available. Allergies Unknown or Not Available. Procedures Unknown or Not Available. History of Immunizations Unknown or Not Available. Problems Problem Code Start Date Resolved Date Status NIDDM 94985603 Active Chronic kidney disease 719863701 Ac tive Homeless 20623544 02/12/2023 Active Results URINALYSIS WITH REFLEX CULT IF POSITIVE - Collect Date/Time: 05/20/2021 18:45 Test Name Code Test Result Test Units Test Ref Rang e COLLECTION MODE: Clean Catch N/A Color 5778-6 YELLOW N/A yellow Appearance 5767-9 CLOUDY N/A clear Glucose urine 32173-2 NEGATIVE N/A negative mg /dl Bilirubin 5770-3 NEGATIVE N/A negative Ketones 2514-8 NEGATIVE N/A negative mg/dl Spec gravity 5811-5 1.015 N/A 1.003 - 1.03 0 pH urine 2756-5 5.5 N/A 5.0 - 7.0 Protein 02604-8 30 N/A negative mg/dl Urobilinogen 94297-5 0.2 N/A <or= 1 EU/dl Nitrite. 5802-4 NEGATIVE N/A negative Blood 5794-3 MODERATE N/A negative Leukocytes. LARGE N/A negative MICROSCOPIC INDICATED N/A WBCs. 81195-8 >100 N/A 0-5 / hpf RBCs 27456-1 25-100 N/A 0-5 / hpf Epith cells 94990-3 none N/A 0-5 / hpf Crystals none N/A none Bacteria large N/A none Mucus 8247-9 none N/A none Casts 96979-5 none N/A none /lpf Active Medications Unknown or Not Available. Medications Administered During Visit Unknown or Not Available. Encounters Encounter Diagnosis Diagnosis Code Start Date Pain in left ankle and joints of left foot M2557 2 05/20/2021 Social History Smoking Status Code Start Date End Date Current every day smoker 264267380 Patient Decision Aids Unknown or Not Available. Discharge Instructions You were admitted to [facility] on 05/20/2021 17:25 with a principal diagnosis of Pain in left ankle and joints of left foot You had the following tests done:URINALYSIS WITH REFLEX CULT IF POSITIVE You were discharged from [facility] on 05/20/2021 20:15 Should you have any [...]
--- NOTE | 2023-02-16 01:55 | NUR.NOTE ---
Nursing Note: Patient removed himself from all monitoring - removed BP cuff, pulse ox, and heart monitor leads
== END 2023-02-16 08:18 | disposition home or self-care (01) ==
PROVIDERS: Emergency Provider Emergency Medicine Emergency Medical Services
DX: M79.671 Pain in right foot (principal); Z59.00 Homelessness unspecified; M79.672 Pain in left foot
CPT/HCPCS: 99283; 99282